=== PATIENT | female | born 1940 | race Caucasian/White ===

== ENCOUNTER 2021-03-29 10:26 | Emergency (ER) | payer MEDICARE, SELFPAY ==
--- NOTE | ~2021-03-29 | XR_ITS ---
EXAMINATION: XR WRIST, LEFT CLINICAL INFORMATION: Left wrist injury COMPARISON: None TECHNIQUE: Four views of the left wrist. FINDINGS: There is no evidence of acute fracture or dislocation of the left wrist. There is some narrowing with spurring and sclerosis seen involving the first carpal metacarpal joint. XR/XR wrist LT min 3V IMPRESSION: No acute fracture or dislocation of the left wrist. Degenerative change first carpal metacarpal joint.
[2021-03-29 10:36] VITALS: BP 141/74; PULSE 92; RESP 18; TEMP 35.9; O2SAT 96; BMI 35.4
--- NOTE | 2021-03-29 11:10 | ED_ITS ---
HPI - Fall General Chief Complaint: Fall Stated Complaint: fell left wrist pain Time Seen by Provider: 03/29/21 11:04 Source: patient and family Mode of arrival: ambulatory Limitations: no limitations History of Present Illness HPI Narrative: 80-year-old female presenting to the ED with complaints of left wrist pain after she had a mechanical fall yesterday of while her daughter was parking the car she was walking towards the sidewalk and she tripped and landed on her left wrist/ knee and since then has been having pain and swelling to the left wrist. She reports she has a small abrasion to her left knee although has no pain to the left knee. She reports she is not up-to-date on her tetanus. She denies any symptoms prior to the fall. She denies any prolonged down time. She only reports left wrist pain/ swelling after the fall and abrasion to the left knee no other symptoms. she reports she only takes a baby aspirin otherwise no other blood thinners. She denies any other injuries complaints or concerns at this time. complaint: fall Onset (ago): day(s) (Yesterday) Fall from: standing Fall witnessed: yes, by family Place fall occurred: street Loss of consciousness: none Prolonged down time: no Symptoms prior to fall: none Context: tripped/slipped ( on the sidewalk) Location of injury - extremities: left: hand ( hand/wrist) Severity: moderate Quality: aching and throbbing Associated symptoms (after fall): denies Related Data Previous Rx's Medication Instructions Recorded acetaminophen 300 mg-codeine 30 mg 1 tab PO Q8H PRN #14 tab 03/29/21 tablet Allergies Allergy/AdvReac Type Severity Reaction Status Date / Time cocoa [COCOA] Allergy Unknown THROAT Verified 03/29/21 10:35 CLOSES Penicillins [PENICILLINS] Allergy Unknown THROAT Verified 03/29/21 10:35 CLOSES Sulfa (Sulfonamide Allergy Unknown THROAT Verified 03/29/21 10:35 Antibiotics) CLOSES [SULFA(SULFONAMIDE ANTIBIOTICS)] Review of Systems Review of Systems: Constitutional : No Weight loss, No Fever, No Chills, No Night Sweats, No Fatigue, No Malaise ENT/Mouth : No Hearing loss, No Ear Pain, No Nasal Congestion, No Sinus Pain, No Hoarseness, No sore throat, No Rhinorrhea, No Swallowing Difficulty Eyes: No Eye Pain, No Swelling, No Redness, No Foreign Body, No Discharge, No Vision Changes Cardiovascular : No Chest Pain, No SOB, No Dyspnea on Exertion, No Orthopnea, No Edema, No Palpitations Respiratory : No Cough, No Sputum, No Wheezing, No Smoke Exposure, No Dyspnea Gastrointestinal : No Nausea, No Vomiting, No Diarrhea, No Constipation, No abdominal Pain, No Hematochezia, No Melena Genitourinary : no irregular bleeding, No Dysuria, No Urinary Frequency, No Hematuria, No Urinary Incontinence, No Urgency, No Flank Pain, No Urinary Flow Changes, No Hesitancy Musculoskeletal : + joint pain/swelling, No Myalgias Skin : No Skin Lesions, No rash Neuro : No Weakness, No Numbness, No Paresthesias, No Loss of Consciousness, No Dizziness, No Headache Psych : No Anxiety/Panic, No Depression, No SI/HI/AH/VH, No Social Issues, Heme/Lymph: No Bruising, No Bleeding,No Lymphadenopathy Endocrine : No Polyuria, No Polydipsia, No Temperature Intolerance Yes all other systems are reviewed and are negative [facility] Past Medical History Attestation statement: The following information was validated with the patient. Social History Social History Alcohol intake: never Smoked in Last 30 Days: No Use of substances other than those prescribed or required for medical reasons: No Advance Directives: No Advance Directives Information Provided: Yes Physical Exam Vital Signs: Vital Signs: Last Vital Signs Temp 96.6 F L 03/29/21 10:36 Pulse 79 03/29/21 12:57 Resp 18 03/29/21 12:57 BP 155/79 H 03/29/21 12:57 Pulse Ox 97 03/29/21 12:57 BMI result Body Mass Index 35.4 vital signs have been reviewed as normal and appeared to be correct. Blood pressure normal Heart rate normal. Respiration rate normal. Temperature normal. Oxygen saturation normal. Appearance: Alert. Oriented X3. No acute distress. Head: Normal external exam. Normocephalic. Atraumatic. Eyes: PERRLA. EOMI. Conjunctiva and sclera normal. Eyelids normal. ENT: Pharynx normal. Uvula midline. Moist mucous membranes. Neck: Normal inspection. Neck supple. FROM. CVS: Normal heart rate and rhythm. Respiratory: No respiratory distress. Painless inspiration. Skin: Skin warm and dry. Normal skin color. Normal skin turgor. No rashes/lesions/lacerations noted. Extremities: Patient with moderate tenderness to palpation and soft tissue swelling and ecchymosis noted to left wrist at the radial and ulnar aspect with limited range of motion for flexion. She reports in extension it feels much better. No obvious ligamentous or tendon injury. She has full range of motion of all fingers. She has full range of motion of the left elbow. She has a sup erficial abrasion to the left knee that is not actively bleeding and no foreign bodies are noted. She does not have any tenderness to the left knee and no obvious ligamentous or tendon injury to the left knee and she has full range of motion to the left knee. Otherwise all other Extremities exhibit normal range of motion and nontender. Neuro: Oriented X 3. No motor deficit. No sensory deficit. Reflexes normal. Normal steady gait. No focal neuro deficits noted. Vascular: + radial pulses Normal cap refill. No cyanosis noted to upper extremity nails Course Course Course Narrative: - 80-year-old female presenting to the ED with complaints of left wrist pain after she had a mechanical fall yesterday of while her daughter was parking the car she was walking towards the sidewalk and she tripped and landed on her left wrist/ knee and since then has been having pain and swelling to the left wrist. She reports she has a small abrasion to her left knee although has no pain to the left knee. She reports she is not up-to-date on her tetanus. will update the patient's tetanus. X-ray of left wrist obtained and revealed chronic changes no acute processes. We will place the patient in a cock-up splint and treat symptomatic and instructed follow up her primary care provider and to return if any new or worsening symptoms and to follow up with Orthopedic if symptoms persist for longer than 1-2 weeks. Patient and family at bedside understand and agree with this plan. MDM - Fall Medical Records Attestation: I reviewed the patient's medical records. Imaging Data left wrist x-ray: Attestation: I personally reviewed and interpreted this imaging study as follows: Radiologist's impression: FINDINGS: There is no evidence of acute fracture or dislocation of the left wrist. There is some narrowing with spurring and sclerosis seen involving the first carpal metacarpal joint.? XR/XR wrist LT min 3V IMPRESSION: No acute fracture or dislocation of the left wrist. ? Degenerative change first carpal metacarpal joint. Discharge Plan Discharge Clinical Impression: Fall, Left wrist sprain, Abrasion of knee, left, Ecchymosis Patient Disposition: Home, Self-Care Instructions: Fall Prevention for Older Adults (ED), Abrasion (ED), Wrist Sprain (ED), Ecchymosis (ED) Prescriptions: New acetaminophen-codeine 300-30 mg tablet 1 tab PO Q8H PRN (Reason: pain) Qty: 14 RF: 0 Referrals: Grace Chou MD [Physician] - 2 weeks ( if symptoms persist for longer than 1-2 weeks make a follow-up appointment with a hand surgeon) Stephanie Rico MD [Primary Care Provider] - 2 days Print Language: Lithuanian
[2021-03-29] MEDS: Diphth,Pertus(ACell),Tet Adult 0.5 ML SYRINGE IM (11:17)
[2021-03-29 12:57] VITALS: BP 155/79; PULSE 79; RESP 18; O2SAT 97
== END 2021-03-29 13:18 | disposition home or self-care (01) ==
PROVIDERS: Emergency Provider Emergency Medicine; PCP Internal Medicine
DX: S63.502A Unspecified sprain of left wrist, initial encounter (principal); S60.212A Contusion of left wrist, initial encounter; S80.212A Abrasion, left knee, initial encounter; W10.1XXA Fall (on)(from) sidewalk curb, initial encounter; Y93.01 Activity, walking, marching and hiking; Y92.481 Parking lot as the place of occurrence of the external cause; Y99.9 Unspecified external cause status
CPT/HCPCS: 73110; 90471; 90715; 99284; 99285

== ENCOUNTER 2024-07-21 05:59 | Outpatient (REF) | payer MEDICARE, SELFPAY ==
[2024-07-21 06:02] LABS: MANUAL DIFF FLAG NO
[2024-07-21 06:39] LABS: Alanine Aminotransferase 45 U/L (0-31); Albumin Level 2.9 g/dL (3.5-5.0); Alkaline Phosphatase 136 U/L (39-117); Anion Gap 11 (12-20); Aspartate Amino Transferase 76 U/L (5-31); Bilirubin Total 0.3 mg/dL (0.0-1.0); Blood Urea Nitrogen 15 mg/dL (9-16); Calcium 8.9 mg/dL (8.4-10.2); Carbon Dioxide 21 mmol/L (22-29); Chloride 111 mmol/L (96-108); Estimated Glomerular Filt Rate 50; Glucose Random 156 mg/dL (60-115); Potassium 4.3 mmol/L (3.3-5.1); Sodium 139 mmol/L (135-145); Total Protein 6.8 g/dL (6.5-8.0)
[2024-07-21 07:13] LABS: Basophils Percent Auto 0.1 % (0-2); Eosinophils Absolute Auto 0.1 X10*3/uL (0.0-0.4); Eosinophils Percent Auto 0.7 % (0-4); Hematocrit 27.6 % (37.0-47.0); Hemoglobin 8.8 g/dl (12.0-16.0); Imm Gran Abs Auto 0.05 X10*3/uL (0.00-0.03); Imm Gran Pct Auto 0.6 % (0.0-0.4); Lymphocytes Absolute Auto 1.8 X10*3/uL (1.2-4.9); Lymphocytes Percent Auto 22.4 % (20-40); Mean Corpuscular HGB Conc 31.9 g/dl (31.0-35.0); Mean Corpuscular Hemoglobin 29.9 pg (27.0-33.0); Mean Corpuscular Volume 93.9 fL (80.0-98.0); Mean Platelet Volume 9.4 fL (9.4-12.3); Monocytes Absolute Auto 0.4 X10*3/uL (0.1-1.2); Monocytes Percent Auto 5.1 % (2-11); Neutrophils Absolute Auto 5.8 x10*3/uL (2.0-8.3); Neutrophils Percent Auto 71.1 % (45-73); Platelet Count 570 X10*3/uL (160-400); Red Blood Count 2.94 X10*6/uL (4.20-5.50); Red Cell Distribution Width 15.7 % (11.0-16.0); White Blood Count 8.2 X10*3/uL (4.8-10.8)
== END 2024-07-21 06:00 | disposition home or self-care (01) ==
LOC: HO.MMNH2L 05:59
PROVIDERS: Visit Provider Family Medicine
DX: I82.402 Acute embolism and thrombosis of unspecified deep veins of left lower extremity (principal); I26.90 Septic pulmonary embolism without acute cor pulmonale
CPT/HCPCS: 36415; 80053; 85025

== ENCOUNTER 2024-07-24 05:45 | Outpatient (REF) | payer MEDICARE, SELFPAY ==
[2024-07-24 05:37] LABS: MANUAL DIFF FLAG NO
[2024-07-24 06:27] LABS: Basophils Percent Auto 0.4 % (0-2); Eosinophils Absolute Auto 0.1 X10*3/uL (0.0-0.4); Eosinophils Percent Auto 0.6 % (0-4); Hematocrit 30.6 % (37.0-47.0); Hemoglobin 9.3 g/dl (12.0-16.0); Imm Gran Abs Auto 0.09 X10*3/uL (0.00-0.03); Imm Gran Pct Auto 0.9 % (0.0-0.4); Lymphocytes Absolute Auto 2.5 X10*3/uL (1.2-4.9); Lymphocytes Percent Auto 25.4 % (20-40); Mean Corpuscular HGB Conc 30.4 g/dl (31.0-35.0); Mean Corpuscular Hemoglobin 29.9 pg (27.0-33.0); Mean Corpuscular Volume 98.4 fL (80.0-98.0); Mean Platelet Volume 9.3 fL (9.4-12.3); Monocytes Absolute Auto 0.4 X10*3/uL (0.1-1.2); Monocytes Percent Auto 4.5 % (2-11); Neutrophils Absolute Auto 6.7 x10*3/uL (2.0-8.3); Neutrophils Percent Auto 68.2 % (45-73); Platelet Count 604 X10*3/uL (160-400); Red Blood Count 3.11 X10*6/uL (4.20-5.50); White Blood Count 9.8 X10*3/uL (4.8-10.8)
[2024-07-24 06:31] LABS: Anion Gap 12 (12-20); Blood Urea Nitrogen 21 mg/dL (9-16); Calcium 8.7 mg/dL (8.4-10.2); Carbon Dioxide 20 mmol/L (22-29); Chloride 113 mmol/L (96-108); Estimated Glomerular Filt Rate 47; Glucose Random 148 mg/dL (60-115); Potassium 4.2 mmol/L (3.3-5.1); Sodium 141 mmol/L (135-145)
== END 2024-07-24 05:46 | disposition home or self-care (01) ==
LOC: HO.MMNH2L 05:45
PROVIDERS: Visit Provider Family Medicine
DX: I26.99 Other pulmonary embolism without acute cor pulmonale (principal); I82.402 Acute embolism and thrombosis of unspecified deep veins of left lower extremity
CPT/HCPCS: 36415; 80048; 85025

== ENCOUNTER 2024-07-31 05:49 | Outpatient (REF) | payer MEDICARE, SELFPAY ==
[2024-07-31 05:41] LABS: MANUAL DIFF FLAG NO
--- OUTSIDE RECORDS SUMMARY | 2024-07-31 06:02 | XMS_ITS | Clinical Summary ---
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 Active nitroglycerin (NITROSTAT) 0.[address] 1 Tab under the tongue as needed for Chest pain. 01/22/20 12 Active predniSONE (DELTASONE) 5 mg tablet Take 1 tablet (5 mg total) by mouth 2 (two) times a day. 02/23/20 24 Active acetaminophen (TYLENOL 8 HOUR) 650 mg 8 hr tablet Take 650 mg by mouth every 8 hours as needed. Active albuterol HFA (PROAIR HFA ; PROVENTIL HFA ; VENTOLIN HFA) 90 mcg/actuation inhaler Inhale 2 Puffs into the lungs every 6 hours as needed for Cough, Wheezing or Shortness of Breath for up to 30 days. 08/05/19 24 Active atorvastatin (LIPITOR) 40 mg tablet Take 1 Tablet by mouth at bedtime. 02/23/20 24 Active cholecalciferol (VITAMIN D-3) 50 mcg (2,000 unit) capsule Take 50 mcg by mouth. 03/26/20 23 Active omeprazole (PriLOSEC) [address] capsule Take 1 capsule (20 mg total) by mouth 1 (one) time each day before breakfast. 90 capsule 06/13/19 25 Active folic acid (FOLVITE) 1 mg tablet Take 1 tablet (1,000 mcg total) by mouth 1 (one) time each day. 05/29/19 25 Active methotrexate 2.5 mg tablet TAKE THREE TABLETS BY MOUTH ONCE A WEEK 05/29/19 25 Active fluorouraciL (EFUDEX) 5 % cream PLEASE SEE ATTACHED FOR DETAILED DIRECTIONS 05/08/19 25 Active apixaban (ELIQUIS) 5 mg tablet Take 2 tablets (10 mg total) by mouth 2 (two) times a day for 8 doses. 07/21/19 25 Active apixaban (ELIQUIS) 5 mg tablet Take 1 tablet (5 mg total) by mouth 2 (two) times a day. 07/25/19 25 Active senna (SENOKOT) 8.6 mg tablet Take 2 tablets (17.2 mg total) by mouth at bedtime. 60 each 11 07/21/19 25 026 Active sertraline (ZOLOFT) 25 mg tablet TAKE 1 TABLET BY MOUTH EVERY DAY 90 tablet 05/11/19 25 025 Discontinu ed(Therapy completed) bisacodyL (DULCOLAX) 10 mg suppository Insert 1 suppository (10 mg total) into the rectum 1 (one) time each day if needed for constipation for up to 10 days. 07/21/19 25 025 ondansetron ODT (ZOFRAN-ODT) 4 mg disintegrating tabletIndications :Nausea Take 1 tablet (4 mg total) by mouth every 8 (eight) hours if needed for vomiting or nausea for up to 7 days. 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 Keating and agree that she is symptomatic from multilevel lumbar stenosis with claudication. We reviewed treatment options including epidural injections, physical therapy and a lumbar decompression with their relative potential benefits. She is currently in PT for osteoarthritis of her knees and it makes the most sense to add on treatment for her back she does not have cauda equina syndrome. Referral slip was provided and she will follow up to let us know her progress and if we need to take further steps. 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 Hypercholesterolemia 11/03/2005 Convulsions 04/20/2005 Overview (05/02/2024): petit mal seizures Severe obesity (BMI 35.0-39.9) with comorbidity 04/20/2005 Encounters Date Type Department Care Team Description 07/16/2024 9:10 AM EDT - 07/20/2024 12:26 PM EDT Hospital Encounter [facility] [address] [place] [phone] Antonio Wynne MD Santoyo-Pach eco, Omar D, MD Pain (Primary Dx); Pulmonary air embolism, initial encounter ([facility]); Venous thromboembolism (VTE); Nausea Discharge Disposition: Retirement Facility from Last 3 Months Immunizations Name Administration Dates Next Due H1N1 Inj Preservative Free 06/21/2009 Influenza trivalent, 0.5mL ( Fluad) 65yo and older 12/29/2023,02/05/2023,12/31/2021,01/24,12/20/2019,02/03/2019,01/10/2018 ,01/07/2017,01/30/2016,02/06/2015,01/24,02/03/2013,01/22/2012, 0,01/25/2009 Influenza trivalent, 0.5mL, preservative free (Fluarix; FluLaval; Fluzone) ages 6mo and older (Afluria) 3 years and older 05/28/2011 Pneumococcal conjugate 13 va lent (Prevnar 13, PCV13) 2mo and older 02/06/2015 Pneumococcal polysaccharide 23 valent (Pneumovax 23) 2yo and older 10/14/2007 Td Tetanus diptheria (Tdvax) 7yo and older 04/13/2016 Tdap Tetanus diptheria acell ular pertussis (Boostrix; Adacel) 7yo and older 03/29/2021,06/21/2006 Surgical History Surgery Date Site/Laterality Comments TUBAL LIGATION PROCEDURE: HISTORICAL TUBAL LIGATION TONSILLECTOMY PROCEDURE: HISTORICAL TONSILLECTOMY COLONOSCOPY 12/30 PROCEDURE: HISTORICAL COLONOSCOPY; COMMENT: [email or web address]; negative screening examination OTHER SURGICAL HISTORY 02/2019 PROCEDURE: MAMMOGRAM CATARACT EXTRACTION 2013 Bilateral PROCEDURE: HISTORICAL CATARACT REMOVAL BREAST BIOPSY 1993 Left PROCEDURE: BX BREAST; PERC NEEDLE CORE W/IMAG GUID COLONOSCOPY 1991 PROCEDURE: HISTORICAL COLONOSCOPY; COMMENT: Negative screening examination COLONOSCOPY 05/07/2016 PROCEDURE: HISTORICAL COLONOSCOPY; COMMENT: [facility]; diverticulosis, otherwise negative screening examination. BREAST SURGERY 1993 Left PROCEDURE: SD UNLISTED PROCEDURE BREAST BELPHAROPTOSIS REPAIR TOTAL KNEE ARTHROPLASTY Left ANKLE SURGERY Right HIP ARTHROPLASTY Right CARPAL TUNNEL RELEASE Bilateral Medical History Medical History Date Comments Obesity, unspecified 04/20/2005 DX:Obesity, unspecified Pure hypercholesterolemia 11/03/2005 DX:Pur e hypercholesterolemia Other convulsions 04/20/2005 DX:Other convu lsions Essential hypertension, benign 04/20/2005 D X:Essential hypertension, benign Unspecified venous (peripher al) insufficiency 09/27/2006 DX:Unspecified venous (perip heral) insufficiency GE reflux 10/14/2007 DX:GE reflux Wrist fracture 06/21/2009 DX:Wrist fractur e Fibula fracture 01/22/2012 DX:Fibula fractu re CKD (chronic kidney disease) stage 3, GFR 30-59 ml/min ([facility]) 08/11/2013 DX:CKD (chronic kidney dise ase) stage 3, GFR 30-59 ml/min ([facility]) Tricuspid regurgitation 10/09/2013 DX:Tricu spid regurgitation; COMMENT: Mild to mod, echo 10/07 Nl EF History of sepsis DX:History of sepsis; COMMENT: Hospitalized [facility] August 2019 History of colitis DX:History of colitis; COMMENT: Hospitalized at [facility] August 2019 Diverticulosis DX:Diverticulosi s Primary osteoarthritis of both knees 07/30/2020 DX:Primary osteoarthritis of both knees Melanoma ([facility]) 03/12/2022 DX:Melanoma ( [facility]) Melanoma ([facility]) 03/12/2022 DX:Melanoma ( [facility]) Monoclonal gammopathy 12/30/2023 DX:Monoclo nal gammopathy Polymyositis Family History Medical History Relation Name Comments No Known Problems Daughter Throat cancer Father 63 No Known Problems Maternal Grandfather No Known Problems Maternal Grandmother Heart failure Mother 89 No Known Problems Other No Known Problems Paternal Grandfather Heart attack Paternal Grandmother 54 No Known Problems Sister Breast cancer Neg Hx Relation Name Status Comments Daughter Father Maternal Grandfather Maternal Grandmother Mother Other Paternal Grandfather Paternal Grandmother Sister Social History Tobacco Use Types Packs/Day Years Used Date Smoking Tobacco: Former Cigarettes 0.8 31 1 06/10/1969 - 04/26/2001 Smokeless Tobacco: Never Alcohol Use Standard Drinks/Week Comments Yes 0 (1 standard drink = 0.6 oz pur e alcohol) socially Interpersonal Safety Answer Date Record ed Physical Abuse 07/16/2024 Verbal Abuse 07/16/2024 Comments Unknown Sex and Gender Information Value Date Recorded Sex Assigned at Female 07/16/2024 9:53 AM EDT Legal Sex Female 9:52 AM EST Gender Identity Female 07/16/2024 9:53 AM EDT Sexual Orientation Straight 07/16/2024 9: 53 AM EDT Obstetrics History Last Filed Vital Signs Vital Sign Reading Time Taken Comments Blood Pressure 108/65 07/20/2024 8:12 AM EDT Pulse 105 07/20/2024 8:12 AM EDT Temperature 36.4 ??C (97.5 ??F) 07/20/2024 8:12 AM ED T Respiratory Rate 16 07/20/2024 8:12 AM EDT Oxygen Saturation 96% 07/20/2024 8:12 AM EDT Inhaled Oxygen Concentration - - Weight 81.1 kg (178 lb 14.4 oz) 025 11:47 AM EDT Height 167.6 cm (5' 6 ) 07/16/2024 9:23 AM EDT Body Mass Index 28.88 07/16/2024 9:23 AM EDT Plan of Treatment Health Maintenance Due Date Last Done Comments Zoster Vaccines (1 of 2) 1961 RSV Immunization Adult Patients (1 - 1-dose 75+ series) 2017 Depression Screening 04/04/2022 Medicare Annual Wellness Visit 04/04/2022 Osteoporosis Screening (Bone Density Screening) 04/04/2022 Social Influencers of Health Screening 04/04/2022 COVID-19 Vaccine ( season) 2023 02/03/2021, 07/01/2020, 06/10/2020 Hypertension/CHF/CAD Annual BMP Blood Test 07/19/2025 07/19/2024, 07/18/2024, 07/17/2024, Additional history exists Falls Risk Assessment 07/20/2025 07/20/2024, 024 Cholesterol Screening (Lipid Panel) 09/15/2027 09/14/2022 DTaP,Tdap,and Td Vaccines (4 - Td or Tdap) 03/29/2031 03/29/2021, 04/13/2016, 06/21/2006 Pneumococcal Vaccine: 50+ Years Completed 02/06/2015, 10/14/2007 Influenza Vaccine Completed 12/29/2023, , 12/31/2021, Additional history exists HIB Vaccines Aged Out No longer eligi ble based on patient's age to complete this topic HPV Vaccines Aged Out No longer eligi ble based on patient's age to complete this topic Hepatitis A Vaccines Aged Out No long er eligible based on patient's age to complete this topic Hepatitis B Vaccines Aged Out No long er eligible based on patient's age to complete this topic IPV Vaccines Aged Out No longer eligi ble based on patient's age to complete this topic MMR Vaccines Aged Out No longer eligi ble based on patient's age to complete this topic Meningococcal ACWY Vaccine Aged Out N o longer eligible based on patient's age to complete this topic Meningococcal B Vacine Aged Out No lo nger eligible based on patient's age to complete this topic RSV Immunization Patients Under 20 months Aged Out No longer eligible based on patient's age to complete this topic Varicella Vaccines Aged Out No longer eligible based on patient's age to complete this topic Procedures Procedure Name Priority Date/Time Associated Diagnosis Comments ECG ANNOTATED 07/21/2024 ECG ANNOTATED 07/21/2024 CBC WITH AUTO DIFFERENTIAL Routine 07/19/2024 6:32 AM EDT BASIC METABOLIC PANEL Routine 07/19/2024 6:32 AM EDT CBC AND DIFFERENTIAL Routine 07/19/2024 6:32 AM EDT CBC WITH AUTO DIFFERENTIAL Routine 07/18/2024 6:03 AM EDT CBC AND DIFFERENTIAL Routine 07/18/2024 6:03 AM EDT BASIC METABOLIC PANEL Routine 07/18/2024 6:03 AM EDT TRANSTHORACIC ECHOCARDIOGRAM (TTE) COMPLETE W/ CONTRAST Routine 07/17/2024 1:00 PM EDT Venous thromboembolism (VTE) HEPARIN ANTI XA Timed 07/17/2024 12:57 PM EDT SEDIMENTATION RATE Add-On 07/17/2024 8: 10 AM EDT HEPARIN ANTI XA Timed 07/17/2024 8:10 AM EDT CBC WITH AUTO DIFFERENTIAL Routine 07/17/2024 8:10 AM EDT BASIC METABOLIC PANEL Routine 07/17/2024 8:10 AM EDT CBC AND DIFFERENTIAL Routine 07/17/2024 8:10 AM EDT HEPARIN ANTI XA Routine 07/17/2024 12:45 AM EDT VAS US DUPLEX LOWER EXT VENOUS BILAT Routine 07/16/2024 6:53 PM EDT Venous thromboembolism (VTE) HEPARIN ANTI XA STAT 07/16/2024 5:35 PM EDT HEPARIN ANTI XA STAT 07/16/2024 12:07 PM EDT ACTIVATED PARTIAL THROMBOPLASTIN TIME STAT 07/16/2024 12:07 PM EDT PROTHROMBIN TIME WITH INR STAT 07/16/2024 12:07 PM EDT TROPONIN I HIGH SENSITIVITY STAT 07/16/2024 11:[address] ANGIO CHEST WO AND/OR W CONTRAST STAT 07/16/2024 11:14 AM EDT Pain ECG 12-LEAD STAT 07/16/2024 11:07 AM EDT XR CHEST 2 VIEWS STAT 07/16/2024 10:37 AM EDT [id number], RSV, FLU A AND B QUALITATIVE RT-PCR, INTERNAL LAB STAT 07/16/2024 10:00 AM EDT CORTISOL STAT Add-on 07/16/2024 9:43 AM EDT CREATINE KINASE Add-On 07/16/2024 9:43 AM EDT TRIIODOTHYRONINE FREE STAT 07/16/2024 9:43 AM EDT FREE THYROXINE WITH REFLEX TO FREE TRIIODOTHYRONINE STAT 07/16/2024 9:43 AM EDT THYROID STIMULATING HORMONE WITH REFLEX TO FREE T4 AND FREE T3 STAT Add-on 07/16/2024 9:43 AM EDT CBC WITH AUTO DIFFERENTIAL STAT 07/16/2024 9:43 AM EDT B-TYPE NATRIURETIC PEPTIDE STAT 07/16/2024 9:43 AM EDT MAGNESIUM STAT 07/16/2024 9:43 AM EDT LIPASE STAT 07/16/2024 9:43 AM EDT COMPREHENSIVE METABOLIC PANEL STAT 07/16/2024 9:43 AM EDT CBC AND DIFFERENTIAL STAT 07/16/2024 9:43 AM EDT TROPONIN I HIGH SENSITIVITY STAT 07/16/2024 9:43 AM EDT ECG 12-LEAD STAT 07/16/2024 9:17 AM EDT FALLS RISK ASSESSMENT Routine 12/22/2023 LIPID PANEL Routine 09/14/2022 from Last 3 Months or Most Recently Relevant to Health Maintenance Results * ECG-Annotated (07/21/2024) Only the most recent of2 resultswithin the time period is included. us Provider Onbase MD ECG ORDERABLES Final Result * (ABNORMAL) CBC auto differential (07/19/2024 6:32 AM EDT) Only the most recent of4 resultswithin the time period is included. [facility] WBC 9.2 4.8 - 10.8 K/mcL LAB HEMETOLOGY METHOD 07/19/2024 7:13 AM [facility] RBC 3.00(L) 3.80 - 4.80 M/mcL LAB HEMETOLOGY METHOD 07/19/2024 7:13 AM [facility] Hemoglobin 8.9(L) 11.5 - 16.0 g/dL LAB HEMETOLOGY METHOD 07/19/2024 7:13 AM [facility] Hematocrit 29.1(L) 35.0 - 47.0 % LAB HEMETOLOGY METHOD 07/19/2024 7:13 AM [facility] MCV 96.7 79.0 - 98.0 FL LAB HEMETOLOGY METHOD 07/19/2024 7:13 AM [facility] MCH 29.6 27.0 - 32.0 pcg LAB HEMETOLOGY METHOD 07/19/2024 7:13 AM [facility] MCHC 30.6(L) 32.0 - 37.0 g/dL LAB HEMETOLOGY METHOD 07/19/2024 7:13 AM [facility] RDW 15.6(H) 11.0 - 15.0 % LAB HEMETOLOGY METHOD 07/19/2024 7:13 AM [facility] Platelets 584(H) 130 - 400 K/mcL LAB HEMETOLOGY METHOD 07/19/2024 7:13 AM [facility] MPV 9.3 7.0 - 11.0 FL LAB HEMETOLOGY METHOD 07/19/2024 7:13 AM [facility] NRBC 0.0 <1.0 % LAB HEMETOLOGY METHOD 07/19/2024 7:13 AM [facility] NRBC Absolute 0.00 <0.10 K/[facility] LAB HEMETOLOGY METHOD 07/19/2024 7:13 AM [facility] Neutrophils Relative 60.7 % LAB HEMETOLOGY METHOD 07/19/2024 7:13 AM [facility] Lymphocytes Relative 27.2 % LAB HEMETOLOGY METHOD 07/19/2024 7:13 AM [facility] Monocytes Relative 8.6 % LAB HEMETOLOGY METHOD 07/19/2024 7:13 AM [facility] Eosinophils Relative 2.3 % LAB HEMETOLOGY METHOD 07/19/2024 7:13 AM [facility] Basophils Relative 0.4 % LAB HEMETOLOGY METHOD 07/19/2024 7:13 AM [facility] Immature Granulocytes Relative 0.8 % LAB HEMETOLOGY METHOD 07/19/2024 7:13 AM [facility] Neutrophils Absolute 5.57 1.50 - 7.00 K/mcL LAB HEMETOLOGY METHOD 07/19/2024 7:13 AM [facility] Lymphocytes Absolute 2.50 1.00 - 5.00 K/mcL LAB HEMETOLOGY METHOD 07/19/2024 7:13 AM [facility] Monocytes Absolute 0.79 0.20 - 1.00 K/mcL LAB HEMETOLOGY METHOD 07/19/2024 7:13 AM [facility] Eosinophils Absolute 0.21 0.00 - 0.50 K/mcL LAB HEMETOLOGY METHOD 07/19/2024 7:13 AM [facility] Basophils Absolute 0.04 0.00 - 0.20 K/mcL LAB HEMETOLOGY METHOD 07/19/2024 7:13 AM [facility] Immature Granulocytes Absolute 0.07(H) 0.00 - 0.03 K/mcL LAB HEMETOLOGY METHOD 07/19/2024 7:13 AM [facility] Blood Venous blood specimen / Unknown Venipuncture / Unknown 07/19/2024 6:32 AM EDT 07/19/2024 6:41 AM EDT us Leo Neumann MD LAB BLOOD ORDERABLES F inal Result [facility] [address] [place] [address], [place] [phone] * (ABNORMAL) Basic metabolic panel (07/19/2024 6:32 AM EDT) Only the most recent of3 resultswithin the time period is included. Sodium 135 133 - 145 mmol/L LAB CHEMISTRY METHOD 07/19/2024 7:26 AM [facility] Potassium 3.9 3.5 - 5.5 mmol/L LAB CHEMISTRY METHOD 07/19/2024 7:26 AM [facility] Chloride 107 96 - 110 mmol/L LAB CHEMISTRY METHOD 07/19/2024 7:26 AM [facility] CO2 22 21 - 32 mmol/L LAB CHEMISTRY METHOD 07/19/2024 7:26 AM [facility] Anion Gap 6 3 - 11 LAB CHEMISTRY METHOD 07/19/2024 7:26 AM [facility] Glucose 127(H) 70 - 100 mg/dL LAB CHEMISTRY METHOD 07/19/2024 7:26 AM [facility] BUN 13 5 - 25 mg/dL LAB CHEMISTRY METHOD 07/19/2024 7:26 AM [facility] Creatinine 1.10 0.50 - 1.10 mg/dL LAB CHEMISTRY METHOD 07/19/2024 7:26 AM [facility] eGFR 50(L) >=60 mL/min/1. 73m2 LAB CHEMISTRY METHOD 07/19/2024 7:26 AM [facility] Comment:Calculation based on the??Chronic Kidney Disease Epidemiology Collaboration (CKD-EPI) equation refit??without adjustment for race. BUN/Creatinine Ratio 11.8 LAB CHEMISTRY METHOD 07/19/2024 7:26 AM EDT [facility] Calcium 9.0 8.5 - 10.5 mg/dL LAB CHEMISTRY METHOD 07/19/2024 7:26 AM EDT [facility] Blood Venous blood specimen / Unknown Venipuncture / Unknown 07/19/2024 6:32 AM EDT 07/19/2024 6:41 AM EDT us Leo Neumann MD LAB BLOOD ORDERABLES F inal Result [facility] [address] [place] [address], [place] [phone] * TRANSTHORACIC ECHOCARDIOGRAM (TTE) COMPLETE W/ CONTRAST (07/17/2024 1:00 PM EDT) Left Atrium Minor Montezuma 5.0 cm CV PACS Left Atrium Major Montezuma 5.5 cm CV PACS LA Area Sys (A2C) 17 cm2 CV PACS LA Area Sys (A4C) 18 cm2 CV PACS LA Volume (BP) 48 mL CV PACS RA Area 11.2 cm2 CV PACS RA 2D Volume 22 mL CV PACS AV Mean Gradient 5 mmHg CV PACS Ao VTI 25.9 cm CV PACS AV Peak Reynaldo 1.5 m/s CV PACS AV Peak Gradient 9 mmHg CV PACS AV Area Continuity Equation 2.9 cm2 CV PACS AV Area Peak Velocity 2.9 cm2 CV PACS Aortic Sinus Valsalva 3.0 cm CV PACS Ascending Aorta 2.9 cm CV PACS IVC Proximal 1.6 cm CV PACS LVOT Diameter 2.0 cm CV PACS LVOT Mean Reynaldo 1.0 m/s CV PACS LVOT Mean Grad 4 mmHg CV PACS LVOT Peak VTI 23.7 cm CV PACS LVOT Peak Reynaldo 1.4 m/s CV PACS LVOT Peak Gradient 8 mmHg CV PACS MV E' Tissue Velocity Lateral 9 cm/s CV PACS MV E' Tissue Velocity Septal 6 cm/s CV PACS LVOT Area 3.1 cm2 CV PACS LVOT Stroke Volume 74 mL CV PACS MV Deceleration Callahan 5.0 m/s2 CV PACS E Wave Deceleration Time 174 119 - 242 ms CV PACS MV PHT 51 ms CV PACS MV Peak A Reynaldo 1.40 m/s CV PACS MV Peak E Reynaldo 0.87 m/s CV PACS MV Area PHT 4.3 cm2 CV PACS PV Acceleration Time 120 ms CV PACS PV Peak Velocity 1.0 m/s CV PACS PV Peak Gradient 4 mmHg CV PACS RV Diastolic Basal Dimension 3.1 2.5 - 4.1 cm CV PACS RV S' 22 cm/s CV PACS TAPSE 26 mm CV PACS E/E' Ratio Septal 15 CV PACS E/E' Ratio Averaged 12 CV PACS LVOT Stroke Index 39 mL/m2 CV PACS LVOT:AV VTI Index 0.92 CV PACS Ascending Aorta Index 1.52 cm/m2 CV PACS LVOT flow 314 mL/s CV PACS RA 2D Volume Index 12 mL/m2 CV PACS ANNMARIE Index (VTI) 1.50 cm2/m2 CV PACS ANNMARIE Index (Pk Reynaldo) 1.52 cm2/m2 CV PACS AV Velocity Ratio 0.93 CV PACS E/A Ratio 0.6 CV PACS E/E' Ratio Lateral 10 CV PACS LA Volume Index (BP) 25 mL/m2 CV PACS BSA 1.84 m2 CV PACS Est. RA Pressure 3 mmHg CV PACS Anatomical Region Laterality Modality Ultrasound Narrative 07/17/2024 2:29 PM EDT ?Poor image quality. ??LV function is clearly normal. ??RV function is clearly normal. ??RV size looks normal. ?The atria are grossly normal. ?No significant valvular abnormality. ?The IVC looks normal. ?No prior echo for comparison. Left Ventricle Left ventricle was not well visualized. Wall thickness was not well visualized. Systolic function is normal with an ejection fraction of 65-70%. There are no regional LV wall motion abnormalities. There is no diastolic dysfunction. Right Ventricle Right ventricle cavity appears normal. Systolic function is normal. Left Atrium Left atrium volume index is normal. Right Atrium Right atrium cavity is normal. IVC/SVC RA pressures is estimated to be 3 mmHg (IVC diameter <21 mm and decreases >50% during inspiration). Mitral Valve The leaflets are mildly thickened. There is mild annular calcification. There is trace regurgitation. There is no evidence of mitral valve stenosis. Tricuspid Valve The leaflets exhibit normal excursion. There is trace regurgitation. There is no evidence of tricuspid valve stenosis. Cannot assess RVSP. Aortic Valve The aortic valve is trileaflet. The leaflets are mildly thickened. There is no regurgitation or stenosis. Pulmonic Valve The pulmonic valve was not well visualized. There is trace pulmonic valve regurgitation. There is no evidence of pulmonic valve stenosis. Ascending Aorta The aorta appears normal in size. Pericardium Pericardium appears normal. Study Details Overall the study quality was technically difficult. Definity contrast was given to enhance imaging. Study was difficult due to: poor endocardial visualization, procedure performed with the patient in a supine position and lung artifact. us Leo Neumann MD CV ECHO PROCEDURES Fin al Result * Anti-Xa - Every 6 Hours (07/17/2024 12:57 PM EDT) Only the most recent of5 resultswithin the time period is included. Heparin Anti-Xa 0.60 0.30 - 0.70 I Unit/mL LAB COAGULATION METHOD 07/17/2024 1:24 PM EDT [facility] Blood Venous blood specimen / Unknown Venipuncture / Unknown 07/17/2024 12:57 PM EDT 07/17/2024 1:01 PM EDT Narrative [facility] - 07/17/2024 1:24 PM EDT Therapeutic range listed is for Unfractionated Heparin. LMW Heparin therapeutic range: 0.50-1.20 IU/mL us Leo Neumann MD LAB BLOOD ORDERABLES F inal Result [facility] [address] [place] [address], [place] [phone] * (ABNORMAL) Sedimentation rate (07/17/2024 8:10 AM EDT) Sed Rate 129(H) 0 - 30 mm/hr LAB HEMETOLOGY METHOD 07/17/2024 9:06 AM EDT [facility] Blood Venous blood specimen / Unknown Venipuncture / Unknown 07/17/2024 8:10 AM EDT 07/17/2024 8:25 AM EDT us Leo Neumann MD LAB BLOOD ORDERABLES F inal Result [facility] [address] [place] [address], [place] [phone] * Vascular US duplex lower extremity venous bilateral (07/16/2024 6:53 PM EDT) Anatomical Region Laterality Modality Vascular, Abdomen Ultrasound 07/16/2024 7:11 PM EDT Addenda Addendum by Danisha Nicolas MD on 07/16/2024 7:17 PM EDT ADDENDUM: This report was discussed with Keily Fofana RN on Jul 16, 2024 19:17:00 EDT. This document has been electronically signed by: Melanie Fraga on 07/16/2024 19:17:48 Impressions 07/16/2024 7:11 PM EDT Occlusive thrombus in the left common femoral vein and superficial femoral vein. Negative for right lower extremity deep vein thrombosis. This document has been electronically signed by: Danisha Nicolas MD on 07/16/2024 19:11:37 Narrative 07/16/2024 7:11 PM EDT INDICATION: DVT Hx Venous duplex ultrasound bilateral lower extremity Comparison: None Findings: Right lower extremity: The visualized deep veins are fully compressible with normal Doppler color flow and spectral tracings. No popliteal cyst. Left lower extremity: Occlusive thrombus in the left common femoral vein and superficial femoral vein. The other visualized deep veins are fully compressible with normal Doppler color flow and spectral tracings. No popliteal cyst. Procedure Note Danisha Nicolas MD - 07/16/2024 INDICATION: DVT Hx Venous duplex ultrasound bilateral lower extremity Comparison: None Findings: Right lower extremity: The visualized deep veins are fully compressible with normal Dopplercolor flow and spectral tracings. No popliteal cyst. Left lower extremity: Occlusive thrombus in the left common femoral vein and superficialfemoral vein. The other visualized deep veins are fully compressible with normalDoppler color flow and spectral tracings. No popliteal cyst. IMPRESSION: Occlusive thrombus in the left common femoral vein and superficialfemoral vein. Negative for right lower extremity deep vein thrombosis. This document has been electronically signed by: Danisha Nicolas MD on 07/16/2024 19:11:37 us Nadia JARAMILLO CV VASCULAR PROCEDURES Edited R esult - Final * Activated Partial Thromboplastin Time - STAT (07/16/2024 12:07 PM EDT) [facility] aPTT 26.2 24.1 - 39.3 sec LAB COAGULATION METHOD 07/16/2024 12:52 PM EDT [facility] Blood Venous blood specimen / Unknown Venipuncture / Unknown 07/16/2024 12:07 PM EDT 07/16/2024 12:42 PM EDT Mgehan JARAMILLO LAB BLOOD ORDERABLES F inal Result [facility] [address] [place] [address], [place] [phone] * Prothrombin Time with INR - STAT (07/16/2024 12:07 PM EDT) [facility] Protime 13.6 10.6 - 13.9 sec LAB COAGULATION METHOD 07/16/2024 12:52 PM EDT [facility] INR 1.1 LAB COAGULATION METHOD 07/16/2024 12:52 PM EDT [facility] Blood Venous blood specimen / Unknown Venipuncture / Unknown 07/16/2024 12:07 PM EDT 07/16/2024 12:42 PM EDT Meghan JARAMILLO LAB BLOOD ORDERABLES F inal Result Performing Organization Address [facility] Co de Phone Number [facility] [address] [place] [address], [place] [phone] * Troponin I high sensitivity (07/16/2024 11:19 AM EDT) Only the most recent of2 resultswithin the time period is included. [facility] High Sensitivity Troponin I 4 <=54 ng/L LAB CHEMISTRY METHOD 07/16/2024 12:19 PM EDT [facility] Blood Venous blood specimen / Unknown Venipuncture / Unknown 07/16/2024 11:19 AM EDT 07/16/2024 11:46 AM EDT Narrative [facility] - 07/16/2024 12:19 PM EDT High levels of biotin in samples may falsely decrease hsTroponin values. ??Use caution when interpreting hsTroponin results in patients taking biotin who exhibit renal impairment (eGFR <60) or in patients taking more than 20 mg/day of biotin. Antonio Wynne MD LAB BLOOD ORDERABLES Debi l Result Performing Organization Address [facility]/ZIP Co de Phone Number [facility] [address] [place] [address], [place] [phone] * CT Angio Chest wo and/or w Contrast (07/16/2024 11:14 AM EDT) Anatomical Region Laterality Modality Body Computed Tomogra phy 07/16/2024 11:2 4 AM EDT Impressions 07/16/2024 11:34 AM EDT Impression: 1. Pulmonary thromboembolism involving the distal right pulmonary artery with extension into the right upper and middle lobe arteries, as described, with a small right middle lobe pulmonary infarct accounting for the finding noted on the preceding chest radiograph. 2. No evidence of right heart strain. The pertinent findings were conveyed to the referring provider by secure message ([email or web address]) at the time of interpretation on 07/16/24. Telerad ELLA ([id number]) -------- FINAL REPORT -------- Dictated By: Jessica Ashford Dictated Date: 07/16/2024 11:24 ET Assigned Physician: Jessica Ashford Reviewed and Electronically Signed By: Jessica Ashford Signed Date: 07/16/2024 11:34 ET Workstation ID: [id number] Transcribed By: Self Edit Transcribed Date: 07/16/2024 11:24 ET Narrative 07/16/2024 11:34 AM EDT History: Chest pain. Comparison: No comparison imaging at this institution. TECHNIQUE: Helical volumetric imaging of the thorax was performed in the axial plane during the rapid, uneventful intravenous administration of 90 mL Isovue-370, using the CT angiography protocol tailored for evaluation of the pulmonary arteries. Coronal and sagittal images were reformatted from the original data set and maximum intensity pixel images were reviewed, in multiple planes, on an independent CT workstation. DLP: 500.78 mGy/cm Zigabid VCT Iterative reconstruction technique Findings: The pulmonary arterial tree is well-opacified to the subsegmental level bilaterally. A large filling defect is seen within the distal right pulmonary artery and extends into the proximal right upper lobe artery and into the right middle lobe medial and lateral segmental arteries, consistent with pulmonary thromboembolism. The right middle lobe lateral segmental artery and multiple subsegmental arteries are completely occluded. The heart is normal in size. No findings of right heart strain are identified. The thoracic aorta is normal in caliber, with moderate atherosclerotic change. Coronary artery calcification is also seen. No pleural or pericardial effusions are identified. No thoracic lymphadenopathy is seen. The trachea and central bronchial tree are patent. The nodular opacity identified in the right mid lung on the preceding chest radiograph corresponds to a triangular, pleural-based 2 cm air space opacity in the lateral segment of the right middle lobe, consistent with a pulmonary infarct in this setting. There is mild dependent density at the lung bases, consistent with atelectasis. A small portion of the upper abdomen included on the lowest images through the thorax is without significant abnormality. 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 Procedure Note Jessica Ashford MD - 07/16/2024 History: Chest pain. Comparison: No comparison imaging at this institution. TECHNIQUE: Helical volumetric imaging of the thorax was performed in theaxial plane during the rapid, uneventful intravenous administration of 90mL Isovue-370, using the CT angiography protocol tailored for evaluationof the pulmonary arteries. Coronal and sagittal images were reformattedfrom the original data set and maximum intensity pixel images werereviewed, in multiple planes, on an independent CT workstation. DLP: 500.78 mGy/cm EKK [employer] Iterative reconstruction technique Findings: The pulmonary arterial tree is well-opacified to the subsegmental levelbilaterally. A large filling defect is seen within the distal right pulmonary arteryand extends into the proximal right upper lobe artery and into the rightmiddle lobe medial and lateral segmental arteries, consistent withpulmonary thromboembolism. The right middle lobe lateral segmental arteryand multiple subsegmental arteries are completely occluded. The heart is normal in size. No findings of right heart strain areidentified. The thoracic aorta is normal in caliber, with moderateatherosclerotic change. Coronary artery calcification is also seen. No pleural or pericardial effusions are identified. No thoraciclymphadenopathy is seen. The trachea and central bronchial tree are patent. The nodular opacityidentified in the right mid lung on the preceding chest radiographcorresponds to a triangular, pleural-based 2 cm air space opacity in thelateral segment of the right middle lobe, consistent with a pulmonaryinfarct in this setting. There is mild dependent density at the lungbases, consistent with atelectasis. A small portion of the upper abdomen included on the lowest images throughthe thorax is without significant abnormality. 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 IMPRESSION: Impression: 1. Pulmonary thromboembolism involving the distal right pulmonary arterywith extension into the right upper and middle lobe arteries, asdescribed, with a small right middle lobe pulmonary infarct accounting forthe finding noted on the preceding chest radiograph. 2. No evidence of right heart strain. The pertinent findings were conveyed to the referring provider by securemessage ([email or web address]) at the time of interpretation on 07/16/24. Teletabitha JARAMILLO ([id number]) -------- FINAL REPORT -------- Dictated By: Jessica Ashford Dictated Date: 07/16/2024 11:24 ET Assigned Physician: Jessica Ashford Reviewed and Electronically Signed By: Jessica Ashford Signed Date: 07/16/2024 11:34 ET Workstation ID: [id number] Transcribed By: Self Edit Transcribed Date: 07/16/2024 11:24 ET us Meghan JARAMILLO IMG CT PROCEDURES Debi l Result * ECG 12 lead (07/16/2024 11:07 AM EDT) Only the most recent of2 resultswithin the time period is included. Ventricular Rate ECG 113 BPM GEMUSE Atrial Rate 113 BPM GEMUSE P-R Interval 162 ms GEMUSE QRS Duration 80 ms GEMUSE Q-T Interval 338 ms GEMUSE QTc 463 ms GEMUSE P Wave [place] 49 degrees GEMUSE R [place] 12 degrees GEMUSE T [place] 39 degrees GEMUSE ECG Interpretation Sinus tachycardia with occasional Premature ventricular complexes Otherwise normal ECG When compared with ECG of 16-JUL-2024 09:17, (unconfirmed) Premature ventricular complexes are now Present Confirmed by CONNER CHEUNG ([id number]) on 07/16/2024 5:02:23 PM GEMUSE 07/16/2024 11:0 7 AM EDT 07/16/2024 5:02 PM EDT us Antonio Wynne MD ECG ORDERABLES Final Res ult GEMUSE * XR Chest 2 Views (07/16/2024 10:37 AM EDT) Anatomical Region Laterality Modality Body Radiographic Mechelle ging 07/16/2024 10:3 8 AM EDT Impressions 07/16/2024 10:40 AM EDT Impression: Faint nodular opacity in the right mid lung, new from 2005. Thoracic CT may be of benefit for further characterization if clinically appropriate. Telerad ELLA ([id number]) -------- FINAL REPORT -------- Dictated By: Jessica Ashford Dictated Date: 07/16/2024 10:38 ET Assigned Physician: Jessica Ashford Reviewed and Electronically Signed By: Jessica Ashford Signed Date: 07/16/2024 10:40 ET Workstation ID: [id number] Transcribed By: Self Edit Transcribed Date: 07/16/2024 10:38 ET Narrative 07/16/2024 10:40 AM EDT Study: Chest pain. Comparison: 10/08/05 Findings: PA and lateral views. The cardiac silhouette remains normal in size. The lukasz are not enlarged and the pulmonary vascularity is within normal limits. A 2 cm faint nodular opacity is seen in the periphery of the right mid lung, well seen only on the frontal views, new from 2005. The lungs are otherwise clear. The costophrenic angles are sharp. The regional skeleton is intact. Procedure Note Jessica Ashford MD - 07/16/2024 Study: Chest pain. Comparison: 10/08/05 Findings: PA and lateral views. The cardiac silhouette remains normal in size. Thehila are not enlarged and the pulmonary vascularity is within normallimits. A 2 cm faint nodular opacity is seen in the periphery of the right midlung, well seen only on the frontal views, new from 2005. The lungs areotherwise clear. The costophrenic angles are sharp. The regional skeleton is intact. IMPRESSION: Impression: Faint nodular opacity in the right mid lung, new from 2005. Thoracic CTmay be of benefit for further characterization if clinicallyappropriate. Telerad ELLA ([id number]) -------- FINAL REPORT -------- Dictated By: Jessica Ashford Dictated Date: 07/16/2024 10:38 ET Assigned Physician: Jessica Ashford Reviewed and Electronically Signed By: Jessica Ashford Signed Date: 07/16/2024 10:40 ET Workstation ID: [id number] Transcribed By: Self Edit Transcribed Date: 07/16/2024 10:38 ET Antonio Wynne MD IMG XR PROCEDURES Final R esult * [id number], RSV, Influenza A and B qualitative RT-PCR (07/16/2024 10:00 AM EDT) Influenza A PCR Not Detected Not Detected LAB MICROBIOLOGY METHOD 07/16/2024 11:16 AM EDT [facility] Influenza B PCR Not Detected Not Detected LAB MICROBIOLOGY METHOD 07/16/2024 11:16 AM EDT [facility] RSV PCR Not Detected Not Detected LAB MICROBIOLOGY METHOD 07/16/2024 11:16 AM EDT [facility] SARS COV-2 Not Detected Not Detected LAB MICROBIOLOGY METHOD 07/16/2024 11:16 AM EDT [facility] Swab Both anterior nares / Unknown Non-blood Collection / Unknown 07/16/2024 10:00 AM EDT 07/16/2024 10:09 AM EDT Narrative [facility] - 07/16/2024 11:16 AM EDT Disclaimer: ??Testing was performed using the [employer] GeneXpert Xpress SARS-CoV-2 _Flu_RSV PLUS PCR assay. ??The manner in which this information is used to guide patient care is the responsibility of the healthcare provider. ??Results should be correlated with the clinical history, epidemiological data, and other data available to the clinician evaluating the patient. ??Negative results do not preclude infection. ??This test has been authorized by the FDA under an Emergency Use Authorization (EUA). ??This test is only authorized for the duration of time the declaration that circumstances exist justifying the authorization of the emergency use of in vitro diagnostic tests for detection of SARS-CoV-2 virus and/or diagnosis of COVID-19 infection under section 564 (b) (1) of the Act, 21 U.S.C 360bbb-3 (b) (1), unless the authorization is terminated or revoked sooner. ?? Reference Range: Not Detected Fact sheet for Healthcare providers can be found at https://www.fda.gov/media/240950/download. ?? Fact sheet for Healthcare patients can be found at https://www.fda.gov/media/183471/download. us Meghan JARAMILLO LAB MICROBIOLOGY - GEN ERAL ORDERABLES Final Result Performing Organization Address [facility] Co de Phone Number [facility] [address] [place] [address], [place] [phone] * (ABNORMAL) Thyroid stimulating hormone with reflex to free t4 and free t3 (TSH Reflex) (07/16/2024 9:43 AM EDT) TSH 5.73(H) 0.40 - 4.00 mcIU/mL LAB CHEMISTRY METHOD 07/16/2024 11:43 AM EDT [facility] Blood Venous blood specimen / Unknown Venipuncture / Unknown 07/16/2024 9:43 AM EDT 07/16/2024 10:10 AM EDT Meghan JARAMILLO LAB BLOOD ORDERABLES F inal Result Performing Organization Address [facility] de Phone Number [facility] [address] [place] [address], [place] [phone] * Free thyroxine with reflex to free triiodothyronine (07/16/2024 9:43 AM EDT) Free T4 1.06 0.70 - 1.80 ng/dL LAB CHEMISTRY METHOD 07/16/2024 12:53 PM EDT [facility] Blood Venous blood specimen / Unknown Venipuncture / Unknown 07/16/2024 9:43 AM EDT 07/16/2024 10:10 AM EDT us Meghan JARAMILLO LAB BLOOD ORDERABLES F inal Result Performing Organization Address City/[facility]/ZIP Co de Phone Number [facility] [address] [place] [address], * (ABNORMAL) Triiodothyronine free (07/16/2024 9:43 AM EDT) T3, Free 192(L) 230 - 420 pcg/dL LAB CHEMISTRY METHOD 07/16/2024 2:10 PM EDT [facility] Blood Venous blood specimen / Unknown Venipuncture / Unknown 07/16/2024 9:43 AM EDT 07/16/2024 10:10 AM EDT Meghan JARAMILLO LAB BLOOD ORDERABLES F inal Result Performing Organization Address City/[facility]/ZIP Co de Phone Number [facility] [address] [place] [address], * B-type natriuretic peptide (07/16/2024 9:43 AM EDT) Pathologist [facility] BNP 22 <=100 pcg/mL LAB CHEMISTRY METHOD 07/16/2024 10:49 AM EDT [facility] Blood Venous blood specimen / Unknown Venipuncture / Unknown 07/16/2024 9:43 AM EDT 07/16/2024 10:10 AM EDT Antonio Wynne MD LAB BLOOD ORDERABLES Debi l Result [facility] [address] [place] [address], * Magnesium (07/16/2024 9:43 AM EDT) Magnesium 2.1 1.9 - 2.6 mg/dL LAB CHEMISTRY METHOD 07/16/2024 10:37 AM EDT [facility] Blood Venous blood specimen / Unknown Venipuncture / Unknown 07/16/2024 9:43 AM EDT 07/16/2024 10:10 AM EDT Antonio Wynne MD LAB BLOOD ORDERABLES Debi l Result Performing Organization Address [facility]/ZIP Co de Phone Number [facility] [address] [place] [address], [place] [phone] * Lipase (07/16/2024 9:43 AM EDT) Pathologist [facility] Lipase 25 13 - 75 unit/L LAB CHEMISTRY METHOD 07/16/2024 10:37 AM EDT [facility] Blood Venous blood specimen / Unknown Venipuncture / Unknown 07/16/2024 9:43 AM EDT 07/16/2024 10:10 AM EDT Antonio Wynne MD LAB BLOOD ORDERABLES Debi l Result Performing Organization Address [facility] Co de Phone Number [facility] [address] [place] [address], [place] [phone] * Creatine kinase (07/16/2024 9:43 AM EDT) [facility] Total CK 26 22 - 269 unit/L LAB CHEMISTRY METHOD 07/16/2024 5:43 PM EDT [facility] Blood Venous blood specimen / Unknown Venipuncture / Unknown 07/16/2024 9:43 AM EDT 07/16/2024 10:10 AM EDT Nadia JARAMILLO LAB BLOOD ORDERABLES Final Resu lt Performing Organization Address [facility]/ZIP Co de Phone Number [facility] [address] [place] [address], [place] [phone] * Cortisol (07/16/2024 9:43 AM EDT) Cortisol 26.4 mcg/dL LAB CHEMISTRY METHOD 07/16/2024 5:58 PM EDT [facility] Blood Venous blood specimen / Unknown Venipuncture / Unknown 07/16/2024 9:43 AM EDT 07/16/2024 10:10 AM EDT Narrative [facility] - 07/16/2024 5:58 PM EDT CORTISOL REFERENCE RANGE ?? 8 AM SPEC: ??5.0-23.0 mcg/dL ?? 4 PM SPEC: ??3.0-16.0 mcg/dL ?? 8 PM SPEC: ??<5.0 mcg/dL us Nadia JARAMILLO LAB BLOOD ORDERABLES Final Resu lt [facility] [address] [place] [address], * (ABNORMAL) Comprehensive metabolic panel (07/16/2024 9:43 AM EDT) Sodium 134 133 - 145 mmol/L LAB CHEMISTRY METHOD 07/16/2024 10:37 AM [facility] Potassium 4.1 3.5 - 5.5 mmol/L LAB CHEMISTRY METHOD 07/16/2024 10:37 AM [facility] Chloride 105 96 - 110 mmol/L LAB CHEMISTRY METHOD 07/16/2024 10:37 AM [facility] CO2 18(L) 21 - 32 mmol/L LAB CHEMISTRY METHOD 07/16/2024 10:37 AM [facility] Anion Gap 11 3 - 11 LAB CHEMISTRY METHOD 07/16/2024 10:37 AM [facility] Glucose 99 70 - 100 mg/dL LAB CHEMISTRY METHOD 07/16/2024 10:37 AM [facility] BUN 17 5 - 25 mg/dL LAB CHEMISTRY METHOD 07/16/2024 10:37 AM [facility] Creatinine 1.25(H) 0.50 - 1.10 mg/dL LAB CHEMISTRY METHOD 07/16/2024 10:37 AM [facility] eGFR 43(L) >=60 mL/min/1. 73m2 LAB CHEMISTRY METHOD 07/16/2024 10:37 AM [facility] Comment:Calculation based on the??Chronic Kidney Disease Epidemiology Collaboration (CKD-EPI) equation refit??without adjustment for race. BUN/Creatinine Ratio 13.6 LAB CHEMISTRY METHOD 07/16/2024 10:37 AM [facility] Calcium 9.3 8.5 - 10.5 mg/dL LAB CHEMISTRY METHOD 07/16/2024 10:37 AM [facility] AST (SGOT) 102(H) 10 - 42 unit/L LAB CHEMISTRY METHOD 07/16/2024 10:37 AM [facility] ALT (SGPT) 52 10 - 60 unit/L LAB CHEMISTRY METHOD 07/16/2024 10:37 AM [facility] Alkaline Phosphatase 176(H) 42 - 121 unit/L LAB CHEMISTRY METHOD 07/16/2024 10:37 AM [facility] Total Protein 7.4 6.0 - 8.0 g/dL LAB CHEMISTRY METHOD 07/16/2024 10:37 AM [facility] Albumin 2.4(L) 3.2 - 5.0 g/dL LAB CHEMISTRY METHOD 07/16/2024 10:37 AM [facility] Total Bilirubin 0.9 0.0 - 1.4 mg/dL LAB CHEMISTRY METHOD 07/16/2024 10:37 AM [facility] Blood Venous blood specimen / Unknown Venipuncture / Unknown 07/16/2024 9:43 AM EDT 07/16/2024 10:10 AM EDT us Antonio Wynne MD LAB BLOOD ORDERABLES Debi l Result [facility] [address] [place] [address], [place] [phone] * Hm Falls Risk Assessment (12/22/2023) Falls Risk Assessment abstracted us Historical Provider HEALTH MAINTENANCE Final Result * (ABNORMAL) Lipid panel (09/14/2022) LDL/HDL Ratio 4 0 - 4 Triglycerides 169(A) 0 - 150 mg/dL Cholesterol 188 0 - 200 mg/dL HDL 51 >=40 mg/dL LDL Cholesterol 104(A) 0 - 100 mg/dL Blood Venous blood specimen / Unknown Historical Provider LAB BLOOD ORDERABLES Debi l Result from Last 3 Months or Most Recently Relevant to Health Maintenance Insurance MEDICARE Advance Directives Documents on File Type Date Recorded Patient Patternmaker Pressure Cast Expl anation Advance Directives and Living Will 07/17/2024 1:06 PM Dulce Maria Keating Health Care Proxy Healthcare Agents on File Name Relationship Healthcare Agent [facility] p Communication Dulce Maria Montoya Daughter Health Care Agent Shon Keating Son [employer] Car e Agent Care Teams Straddle Bug Driver Relationship Specialty Start Date End Date Stephanie Rico MD [address] [place] [id number] [facility] - General 10/16/05
--- OUTSIDE RECORDS SUMMARY | 2024-07-31 06:02 | XMS_ITS | Clinical Summary ---
Author Organization [facility] Address [address] [place], [place] [id number] Care Team Providers Care Chip Tester Name Role Phone Stephanie Rico MD Primary Care Provider [phone] Allergies Active Allergy Reactions Criticality Noted Date Comments Francis Hives Medium 03/28/2021 Elemental Sulfur Anaphylaxis High 03/28/2021 Throat closes Penicillin G Anaphylaxis High 03/28/2021 Throat closes Medications Medication Sig Dispensed Refills Start Date End Date Status omeprazole (PriLOSEC) 20 MG capsule Take 20 mg by mouth daily. 0 Active simvastatin (ZOCOR) tablet 40 mg Take 40 mg by mouth every night at bedtime. 0 Active aspirin 81 MG chewable tablet Chew 81 mg by mouth daily. 0 Active Multiple Vitamin (MULTIVITAMIN ADULT PO) Take by mouth. 0 Active Glucosamine-Chondroit -Vit C-Mn (GLUCOSAMINE 1500 COMPLEX PO) Take 1,500 mg by mouth 3 (three) times a day. 0 Active Biotin 1000 MCG tablet Take 6,000 mcg by mouth 3 (three) times a day. 0 Active acetaminophen (Arthritis Pain) 650 MG CR tablet Take 650 mg by mouth every 8 (eight) hours as needed for pain. 0 Active meloxicam (MOBIC) 7.5 MG tablet TAKE 1 TABLET (7.5 MG TOTAL) BY MOUTH 2 (TWO) TIMES A DAY NEEDED. FOR PAIN 60 tablet 0 07/21/2021 Active Family History Medical History Relation Name Comments Cancer Father esophageal No Sig Med Hx Mother Relation Name Status Comments Father Mother Social History Tobacco Use Types Packs/Day Years Used Date Smoking Tobacco: Former Cigarettes Q uit: 03/28/1977 Smokeless Tobacco: Never Alcohol Use Standard Drinks/Week Comments Yes 0 (1 standard drink = 0.6 oz pur e alcohol) socially Sex and Gender Information Value Date Recorded Sex Assigned at Not on file Gender Identity Not on file Sexual Orientation Not on file Job Start Date Occupation Industry Not on file Not on file Not on file Last Filed Vital Signs Vital Sign Reading Time Taken Comments Blood Pressure 156/99 04/02/2021 8:51 AM EST Pulse 104 04/02/2021 8:51 AM EST Temperature 35.8 ??C (96.4 ??F) 04/02/2021 8:51 AM ES T Respiratory Rate - - Oxygen Saturation 98% 04/02/2021 8:51 AM EST Inhaled Oxygen Concentration - - Weight 96.2 kg (212 lb) 03/28/2021 8:28 AM EST Height 165.1 cm (5' 5 ) 03/28/2021 8:28 AM EST Body Mass Index 35.28 03/28/2021 8:28 AM EST Plan of Treatment Health Maintenance Due Date Last Done Comments Depression Screening 1954 Preventative Health Evaluation 1960 Shingrix-Zoster Vaccine (1 of 2) 1992 Fall Risk Assessment 2007 Osteoporosis Screening (DEXA Scan) 2007 DTap / Tdap / Td (2 - Td or Tdap) 06/21/2016 06/21/2006 RSV Adult > 60+ Yrs or (1 - 1-dose 75+ series) 2017 COVID-19 Vaccine ( - season) 2023 07/01/2020, 06/10/2020 Influenza Vaccine (#1) 2023 , 12/20/2019, 02/03/2019, Additional history exists Pneumococcal Vaccine Completed 02/06/2015, 10/14/19 08 Hepatitis B Vaccines Aged Out No long er eligible based on patient's age to complete this topic RSV Ped < 20 months Aged Out No longe r eligible based on patient's age to complete this topic Care Teams Chip Tester Relationship Specialty Start Date End Date Stephanie Rico MD PCP - General Internal Medicine 03/27/21
--- OUTSIDE RECORDS SUMMARY | 2024-07-31 06:02 | XMS_ITS | Clinical Summary ---
Author Organization [facility] Address [address] [place] [address] Phone Care Team Providers Care Manager Strategic Name Role Phone Stephanie Rico MD Primary Care Provider [phone] Allergies Active Allergy Reactions Criticality Noted Date Comments Chocolate Flavoring Agent (Non-Screening) Anaphylaxis High 12/24/2008 Elemental Sulfur Anaphylaxis High 03/28/2021 Throat closes Penicillin G Anaphylaxis High 03/28/2021 Throat closes Throat closes Medications atorvastatin (LIPITOR) 40 MG tablet Take 40 mg by mouth 1 (one) time each day Per Pt she is now taking 2.5 mg Active budesonide EC (ENTOCORT EC) 3 MG 24 hr capsule Take 9 mg by mouth 1 (one) time each day in the morning Active omeprazole (PriLOSEC) [address] capsule Take 20 mg by mouth 1 (one) time each day Do not crush or chew. Active famotidine (PEPCID) 10 MG tablet Take 10 mg by mouth in the morning and 10 mg in the evening. Active aspirin 325 MG tablet Take 325 mg by mouth Pt takes 325 mg AM And 325 mg PM Active Multiple Vitamin (Multivitamin Adult) tablet Take by mouth Active furosemide (LASIX) 20 MG tablet Take 1 tablet (20 mg total) by mouth 1 (one) time each day 90 tablet 5 08/10/2023 Active Active Problems Problem Noted Date Diagnosed Date Gastroesophageal reflux disease 05/11/2023 05/11/2023 Osteoarthritis of knee 05/11/2023 Hyperlipidemia 05/11/2023 05/11/2023 Obese class I 05/11/2023 05/11/2023 Nephrotoxic acute renal failure 02/09/2023 Immunizations Name Administration Dates Next Due H1N1 Inj Preservative Free 06/21/2009 Influenza Split High Dose Pr eservative Free IM 02/05/2023,12/31/2021,01/24/2021,12/19,02/03/2019,01/10/2018,01/07/2017 ,01/30/2016,02/06/2015,02/05/2014,01/24,01/22/2012,05/28/2011, 0,01/25/2009 Pfizer SARS-COV-2 07/01/2020,06/10/2020 Pneumococcal Conjugate 13-Valent 02/06/2015 Pneumococcal Polysaccharide 10/14/2007 Td 04/13/2016 Tdap 06/21/2006 Family History Medical History Relation Comments Cancer Father Relation Status Comments Father Social History Tobacco Use Types Packs/Day Years Used Date Smoking Tobacco: Former Cigarettes Smokeless Tobacco: Never Tobacco Cessation:Counseling Given: Not Answered Alcohol Use Standard Drinks/Week Comments Yes 0 (1 standard drink = 0.6 oz pur e alcohol) Comments Unknown Sex and Gender Information Value Date Recorded Sex Assigned at Not on file Legal Sex Female 10:38 AM EDT Gender Identity Not on file Sexual Orientation Not on file Last Filed Vital Signs Vital Sign Reading Time Taken Comments Blood Pressure 130/70 05/12/2023 2:03 PM EST Pulse 85 05/12/2023 2:03 PM EST Temperature - - Respiratory Rate - - Oxygen Saturation 97% 05/12/2023 2:03 PM EST Inhaled Oxygen Concentration - - Weight 92.5 kg (204 lb) 05/12/2023 2:03 PM EST Height - - Body Mass Index - - Plan of Treatment Health Maintenance Due Date Last Done Comments Influenza Vaccine (Season Ended) 2024 02/05/2023, 12/31/2021, 01/24/2021, Additional history exists Pneumococcal Vaccine: 65+ Years Completed 02/06/2015, 10/14/2007 Hepatitis B Vaccine Aged Out No longe r eligible based on patient's age to complete this topic Insurance MEDICARE [facility] MEDICARE [facility] Care Teams Manager Strategic Relationship Specialty Start Date End Date Stephanie Rico MD PCP - General Internal Medicine 02/09/23
--- OUTSIDE RECORDS SUMMARY | 2024-07-31 06:02 | XMS_ITS ---
Author Organization [facility] Address [address] [place] [address] Phone Care Team Providers Care Material Distributor Name Role Phone Stephanie Rico MD Primary Care Provider [phone] Post Acute Care Coordination Status:Ongoing (Active) Start date:07/20/2024 Enrollment date:07/20/2024 Enrollment reason:Post acute care coordination Case Team Name Relationship Phone Rashida Mendoza RN Post Acute Copying Machine Repairer(R nathan Staff) Continued Care and Services Coordination
[2024-07-31 06:44] LABS: Basophils Percent Auto 0.1 % (0-2); Eosinophils Absolute Auto 0.1 X10*3/uL (0.0-0.4); Eosinophils Percent Auto 0.7 % (0-4); Hematocrit 32.9 % (37.0-47.0); Hemoglobin 10.1 g/dl (12.0-16.0); Imm Gran Abs Auto 0.06 X10*3/uL (0.00-0.03); Imm Gran Pct Auto 0.8 % (0.0-0.4); Lymphocytes Absolute Auto 1.7 X10*3/uL (1.2-4.9); Lymphocytes Percent Auto 22.6 % (20-40); Mean Corpuscular HGB Conc 30.7 g/dl (31.0-35.0); Mean Corpuscular Hemoglobin 30.1 pg (27.0-33.0); Mean Corpuscular Volume 98.2 fL (80.0-98.0); Mean Platelet Volume 9.7 fL (9.4-12.3); Monocytes Absolute Auto 0.5 X10*3/uL (0.1-1.2); Neutrophils Absolute Auto 5.3 x10*3/uL (2.0-8.3); Neutrophils Percent Auto 69.8 % (45-73); Platelet Count 335 X10*3/uL (160-400); Red Blood Count 3.35 X10*6/uL (4.20-5.50); White Blood Count 7.7 X10*3/uL (4.8-10.8)
[2024-07-31 06:52] LABS: Anion Gap 11 (12-20); Blood Urea Nitrogen 24 mg/dL (9-16); Calcium 8.6 mg/dL (8.4-10.2); Carbon Dioxide 21 mmol/L (22-29); Chloride 112 mmol/L (96-108); Estimated Glomerular Filt Rate 49; Glucose Random 116 mg/dL (60-115); Potassium 4.2 mmol/L (3.3-5.1); Sodium 140 mmol/L (135-145)
== END 2024-07-31 05:50 | disposition home or self-care (01) ==
LOC: HO.MMNH2L 05:49
PROVIDERS: Visit Provider Family Medicine
DX: I82.492 Acute embolism and thrombosis of other specified deep vein of left lower extremity (principal)
CPT/HCPCS: 36415; 80048; 85025

== ENCOUNTER 2024-08-02 15:47 | Outpatient (REF) | payer MEDICARE, SELFPAY ==
--- OUTSIDE RECORDS SUMMARY | 2024-08-02 17:35 | XMS_ITS | Encounter Summary ---
Author Organization [facility] Address [address] [place] [address] Care Team Providers Care Shuttle Buggy Operator Name Role Phone Stephanie Rico MD Primary Care Provider [phone] Della Armstrong MD Unavailable [phone] Encounter Details Date Type Department Care Team Description 05/06/2021 Release of Information Medical Records [address] [place] [id number] Abstract, Provider Social History Tobacco Use Types Packs/Day Years Used Date Smoking Tobacco: Former Cigarettes 0.8 5 1 06/10/1969 - 04/26/2001 Smokeless Tobacco: Never Comments:quit in 2001, Start ed @ age 30 Alcohol Use Standard Drinks/Week Comments Yes 0 (1 standard drink = 0.6 oz pur e alcohol) 4-5 glasses wine per week Sex Assigned at Date Recorded Not on file Job Start Date Occupation Industry Not on file Not on file Not on file COVID-19 Exposure Response Date Recorded In the last month, have you been in contact with someone who was confirmed or suspected to have Coronavirus / COVID-19? No / Unsure 04/15/2021 9:08 AM EST documented as of this encounter Plan of Treatment Not on file documented as of this encounter Visit Diagnoses Not on filedocumented in this encounter Care Teams Shuttle Buggy Operator Relationship Specialty Start Date End Date Stephanie Rico MD [address] [place] [address] PCP - General 10/16/05 Della Armstrong MD 175 [facility] [address] [place] [address] Specialist Neurosurgery 04/15/21 documented as of this encounter
--- OUTSIDE RECORDS SUMMARY | 2024-08-02 17:35 | XMS_ITS | Encounter Summary ---
Author Organization [facility] Address [address] [place] [address] Care Team Providers Care Finance Intern Name Role Phone Stephanie Rico MD Primary Care Provider Della Armstrong MD Unavailable [phone] Encounter Details Date Type Department Care Team Description 10/02/2013 Hospital Medical Records [address] [place] [address] Ancelmo aVrela Social History Tobacco Use Types Packs/Day Years [...] file Not on file Not on file documented as of this encounter Plan of Treatment Not on file documented as of this encounter Visit Diagnoses Not on filedocumented in this encounter Care Teams Finance Intern Relationship Specialty Start Date End Date Stephanie Rico MD [address] [place] [address] PCP - General 10/16/05 Della Armstrong MD 175 [facility] [address] [place] [address] Specialist Neurosurgery 04/15/21 documented as of this encounter
--- OUTSIDE RECORDS SUMMARY | 2024-08-02 17:35 | XMS_ITS | Encounter Summary ---
Author Organization [facility] Address [address] [place] [address] Care Team Providers Care Iuss Acoustic Analyst Name Role Phone Stephanie Rico MD Primary Care Provider [phone] Della Armstrong MD Unavailable [phone] Encounter Details Date Type Department Care Team Description 04/11/2018 Slab Depiler Operator Report Medical Records [address] [place] [address] Ronit Hernandez APRN Social History Tobacco Use Types Packs/Day Years [...] on filedocumented in this encounter Care Teams Iuss Acoustic Analyst Relationship Specialty Start Date End Date Stephanie Rico MD [address] [place] [address] PCP - General 10/16/05 Della Armstrong MD [address] [address] Specialist Neurosurgery 04/15/21 documented as of this encounter
--- OUTSIDE RECORDS SUMMARY | 2024-08-02 17:35 | XMS_ITS | Encounter Summary ---
Author Organization [facility] Address [address] [place] [address] Care Team Providers Care Ecosystem Ecology Professor Name Role Phone Stephanie Rico MD Primary Care Provider [phone] Della Armstrong MD Unavailable [phone] Encounter Details Date Type Department Care Team Description 02/12/2012 Business Doc Medical Records [address] [place] [address] Abstract, Provider Social History Tobacco Use Types Packs/Day Years Used Date Smoking Tobacco: Former Smokeless Tobacco: Never Comments:quit in 2001, Start ed @ age 30 Alcohol Use Standard Drinks/Week Comments Yes 0 (1 standard drink = 0.6 oz pur e alcohol) rare Sex Assigned at Date Recorded Not on file Job Start Date Occupation Industry Not on file Not on file Not on file documented as of this encounter Plan of Treatment Not on file documented as of this encounter Visit Diagnoses Not on filedocumented in this encounter Care Teams Ecosystem Ecology Professor Relationship Specialty Start Date End Date Stephanie Rico MD [address] [place] [address] PCP - General 10/16/05 Della Armstrong MD 175 [facility] [address] [place] [address] Specialist Neurosurgery 04/15/21 documented as of this encounter
--- OUTSIDE RECORDS SUMMARY | 2024-08-02 17:35 | XMS_ITS | Clinical Summary ---
Author Organization [facility] Address [address] [place] [address] Phone Care Team Providers Care Windows Server Specialist Name Role Phone Stephanie Rico MD Primary Care Provider [phone] Allergies Active Allergy Reactions Criticality Noted Date [...] age to complete this topic Insurance MEDICARE [facility] MEDICARE [facility] Care Teams Windows Server Specialist Relationship Specialty Start Date End Date Stephanie Rico MD PCP - General Internal Medicine 02/09/23
--- OUTSIDE RECORDS SUMMARY | 2024-08-02 17:35 | XMS_ITS | Encounter Summary ---
Author Organization [facility] Address [address] [place] [address] Care Team Providers Care Counter Weigher Name Role Phone Stephanie Rico MD Primary Care Provider [phone] Della Armstrong MD Unavailable [phone] Encounter Details Date Type Department Care Team Description 09/07/2019 Hospital Medical Records [address] [place], [place] [address] [place] [address] Social History Tobacco Use Types Packs/Day Years [...] on filedocumented in this encounter Care Teams Counter Weigher Relationship Specialty Start Date End Date Stephanie Rico MD [address] [place] [address] PCP - General 10/16/05 Della Armstrong MD 175 [facility] [address] [place] [address] Specialist Neurosurgery 04/15/21 documented as of this encounter
--- OUTSIDE RECORDS SUMMARY | 2024-08-02 17:35 | XMS_ITS | Encounter Summary ---
Author Organization [facility] Address [address] [place] [address] Care Team Providers Care V Belt Inspector Name Role Phone Stephanie Rico MD Primary Care Provider Della Armstrong MD Unavailable [phone] Encounter Details Date Type Department Care Team Description 03/08/2017 Business Doc Medical Records [address] [place] [address] Abstract, Provider Social History Tobacco Use Types [...] on filedocumented in this encounter Care Teams V Belt Inspector Relationship Specialty Start Date End Date Stephanie Rico MD [address] [place] [address] PCP - General 10/16/05 Della Armstrong MD 175 [facility] [address] [place] [address] Specialist Neurosurgery 04/15/21 documented as of this encounter
--- OUTSIDE RECORDS SUMMARY | 2024-08-02 17:35 | XMS_ITS | Encounter Summary ---
Author Organization [facility] Address [address] [place] [address] Care Team Providers Care Miter Sawyer Name Role Phone Stephanie Rico MD Primary Care Provider Della Armstrong MD Unavailable [phone] Encounter Details Date Type Department Care Team Description 03/31/2023 Bench Molder Apprentice Report Medical Records [address] [place] [address] Sadiq Xavier Social History Tobacco Use Types Packs/Day Years [...] on filedocumented in this encounter Care Teams Miter Sawyer Relationship Specialty Start Date End Date Stephanie Rico MD [address] [place] [address] PCP - General 10/16/05 Della Armstrong MD 175 [facility] [address] [place] [address] Specialist Neurosurgery 04/15/21 documented as of this encounter
--- OUTSIDE RECORDS SUMMARY | 2024-08-02 17:35 | XMS_ITS | Encounter Summary ---
Author Organization [facility] Address [address] [place] [address] Care Team Providers Care Patent Lawyer Name Role Phone Stephanie Rico MD Primary Care Provider Della Armstrong MD Unavailable [phone] Encounter Details Date Type Department Care Team Description 02/16/2006 Hospital Medical Records [address] [place] [address] Jesus Mc MD Social History Tobacco Use Types Packs/Day Years [...] on filedocumented in this encounter Care Teams Patent Lawyer Relationship Specialty Start Date End Date Stephanie Rico MD [address] [place] [address] PCP - General 10/16/05 Della Armstrong MD [address] [address] Specialist Neurosurgery 04/15/21 documented as of this encounter
--- OUTSIDE RECORDS SUMMARY | 2024-08-02 17:35 | XMS_ITS | Encounter Summary ---
Author Organization [facility] Address [address] [place] [address] Care Team Providers Care Sewer Pipe Layer Name Role Phone Stephanie Rico MD Primary Care Provider [phone] Della Armstrong MD Unavailable [phone] Encounter Details Date Type Department Care Team Description 07/16/2016 Business Doc Medical Records [address] [place] [address] Abstract, Provider Social History Tobacco Use Types [...] on filedocumented in this encounter Care Teams Sewer Pipe Layer Relationship Specialty Start Date End Date Stephanie Rico MD [address] [place] [address] PCP - General 10/16/05 Della Armstrong MD 175 [facility] [address] [place] [address] Specialist Neurosurgery 04/15/21 documented as of this encounter
--- OUTSIDE RECORDS SUMMARY | 2024-08-02 17:35 | XMS_ITS | Encounter Summary ---
Author Organization [facility] Address [address] [place] [address] Care Team Providers Care Nutrition Faculty Member Name Role Phone Stephanie Rico MD Primary Care Provider [phone] Della Armstrong MD Unavailable [phone] Encounter Details Date Type Department Care Team Description 01/19/2022 Hospital Medical Records [address] [place] [address] Dulce Maria Aggarwal MD 175 [facility] [address] [place] [address] Social History Tobacco Use Types Packs/Day Years [...] Exposure Response Date Recorded In the last 10 days, have yo u been in contact with someone who was confirmed or suspected to have Coronavirus/COVID-19? No / Unsure 12/22/2021 11:02 AM EDT documented as of this encounter Plan of Treatment Not on file documented as of this encounter Visit Diagnoses Not on filedocumented in this encounter Care Teams Nutrition Faculty Member Relationship Specialty Start Date End Date Stephanie Rico MD [address] [place] [address] PCP - General 10/16/05 Della Armstrong MD [address] [place] [address] [address] [place] [address] Specialist Neurosurgery 04/15/21 documented as of this encounter
--- OUTSIDE RECORDS SUMMARY | 2024-08-02 17:35 | XMS_ITS | Encounter Summary ---
Author Organization [facility] Address [address] [place] [address] Care Team Providers Care Patrol Inspector Name Role Phone Stephanie Rico MD Primary Care Provider [phone] Della Armstrong MD Unavailable [phone] Encounter Details Date Type Department Care Team Description 12/30/2011 Full Stack Net Developer Report Medical Records [address] [place] [address] Mamadou Garcia Social History Tobacco Use Types Packs/Day Years [...] on filedocumented in this encounter Care Teams Patrol Inspector Relationship Specialty Start Date End Date Stephanie Rico MD [address] [place] [address] PCP - General 10/16/05 Della Armstrong MD 175 [facility] [address] [place] [address] Specialist Neurosurgery 04/15/21 documented as of this encounter
--- OUTSIDE RECORDS SUMMARY | 2024-08-02 17:35 | XMS_ITS | Encounter Summary ---
Author Organization [facility] Address [address] [place] [address] Care Team Providers Care Sales Agent Marine Insurance Name Role Phone Stephanie Rico MD Primary Care Provider [phone] Della Armstrong MD Unavailable [phone] Encounter Details Date Type Department Care Team Description 07/16/2016 Night Triage Doc Medical Records [address] [place] [address] Abstract, Provider Social History Tobacco Use Types [...] on filedocumented in this encounter Care Teams Sales Agent Marine Insurance Relationship Specialty Start Date End Date Stephanie Rico MD [address] [place] [address] PCP - General 10/16/05 Delal Armstrong MD 175 [facility] [address] [place] [address] Specialist Neurosurgery 04/15/21 documented as of this encounter
--- OUTSIDE RECORDS SUMMARY | 2024-08-02 17:35 | XMS_ITS | Encounter Summary ---
Author Organization [facility] Address [address] [place] [address] Care Team Providers Care Regulatory Affairs Strategy Specialist Name Role Phone Stephanie Rico MD Primary Care Provider [phone] Della Armstrong MD Unavailable [phone] Reason for Visit * Reason Onset Date Comments Prior Authorization 07/23/2021 emg Encounter Details Date Type Department Care Team Description 07/23/2021 Telephone Internal Medicine - [address], [address] [place] [address] Iman Real, PA-C [address] [place] [address] Prior Authorization (emg) Social History Tobacco Use Types Packs/Day Years [...] suspected to have Coronavirus/COVID-19? No / Unsure 07/22/2021 2:36 PM EDT documented as of this encounter Miscellaneous Notes * Telephone Encounter - Kirsten Katz - 07/23/2021 11:19 AM EDT Forwarded to [facility]. They will obtian auth and call patient to schedule appointment documented in this encounter Plan of Treatment Not on file documented as of this encounter Visit Diagnoses Not on filedocumented in this encounter Care Teams Regulatory Affairs Strategy Specialist Relationship Specialty Start Date End Date Stephanie Rico MD [address] [place] [address] PCP - General 10/16/05 Della Armstrong MD 175 [facility] [address] [place] [address] Specialist Neurosurgery 04/15/21 documented as of this encounter
--- OUTSIDE RECORDS SUMMARY | 2024-08-02 17:35 | XMS_ITS | Encounter Summary ---
Author Organization [facility] Address [address] [place] [address] Care Team Providers Care Jewel Hole Gauger Name Role Phone Stephanie Rico MD Primary Care Provider [phone] Della Armstrong MD Unavailable [phone] Encounter Details Date Type Department Care Team Description 10/25/2021 Hospital Medical Records [address] [place] [address] Prudence Scott Social History Tobacco Use Types Packs/Day Years [...] Recorded In the last 10 days, have danielle brown been in contact with someone who was confirmed or suspected to have Coronavirus/COVID-19? No / Unsure 09/26/2021 9:59 AM EDT documented as of this encounter Plan of Treatment Not on file documented as of this encounter Visit Diagnoses Not on filedocumented in this encounter Care Teams Jewel Hole Gauger Relationship Specialty Start Date End Date Stephanie Rico MD [address] [place] [address] PCP - General 10/16/05 Della Armstrong MD 175 [facility] [address] [place] [address] Specialist Neurosurgery 04/15/21 documented as of this encounter
--- OUTSIDE RECORDS SUMMARY | 2024-08-02 17:35 | XMS_ITS | Clinical Summary ---
Author Organization [facility] Address [address] [place], [place] [address] Care Team Providers Care Molded Parts Inspector Name Role Phone Stephanie Rico MD Primary Care Provider [phone] Allergies Active Allergy Reactions Criticality Noted Date Comments Lynn Hives Medium 03/28/2021 Elemental Sulfur Anaphylaxis High [...] age to complete this topic Care Teams Molded Parts Inspector Relationship Specialty Start Date End Date Stephanie Rico MD PCP - General Internal Medicine 03/27/21
--- OUTSIDE RECORDS SUMMARY | 2024-08-02 17:35 | XMS_ITS | Encounter Summary ---
Author Organization [facility] Address [address] [place] [address] Care Team Providers Care Manager Drug Safety Name Role Phone Stephanie Rico MD Primary Care Provider [phone] Della Armstrong MD Unavailable [phone] Encounter Details Date Type Department Care Team Description 07/29/2021 [facility] 175 [facility] [address] [place] [id number] Iman Real, PA-C 175 [facility] [address] [place] [address] Social History Tobacco Use Types Packs/Day Years [...] PM EDT documented as of this encounter Plan of Treatment Not on file documented as of this encounter Visit Diagnoses Not on filedocumented in this encounter Care Teams Manager Drug Safety Relationship Specialty Start Date End Date Stephanie Rico MD [address] [place] [address] PCP - General 10/16/05 Della Armstrong MD [address] [place] [address] Specialist Neurosurgery 04/15/21 documented as of this encounter
--- OUTSIDE RECORDS SUMMARY | 2024-08-02 17:35 | XMS_ITS | Encounter Summary ---
Author Organization [facility] Address [address] [place] [address] Care Team Providers Care Match Maker Name Role Phone Stephanie Rico MD Primary Care Provider Della Armstrong MD Unavailable [phone] Encounter Details Date Type Department Care Team Description 06/19/2022 Software Educator Report Medical Records [address] [place] [address] Abstract, Provider Social History Tobacco Use Types [...] on filedocumented in this encounter Care Teams Match Maker Relationship Specialty Start Date End Date Stephanie Rico MD [address] [place] [address] PCP - General 10/16/05 Della Armstrong MD 175 [facility] [address] [place] [address] Specialist Neurosurgery 04/15/21 documented as of this encounter
--- OUTSIDE RECORDS SUMMARY | 2024-08-02 17:35 | XMS_ITS | Encounter Summary ---
Author Organization [facility] Address [address] [place] [address] Care Team Providers Care Move Coordinator Name Role Phone Stephanie Rico MD Primary Care Provider [phone] Della Armstrong MD Unavailable [phone] Encounter Details Date Type Department Care Team Description 03/09/2012 Solar Power Installer Report Medical Records [address] [place] [address] Sherif Bautista MD [address] [address] Social History Tobacco Use Types Packs/Day Years [...] on filedocumented in this encounter Care Teams Move Coordinator Relationship Specialty Start Date End Date Stephanie Rico MD [address] [place] [address] PCP - General 10/16/05 Della Armstrong MD [address] [address] Specialist Neurosurgery 04/15/21 documented as of this encounter
--- OUTSIDE RECORDS SUMMARY | 2024-08-02 17:35 | XMS_ITS | Encounter Summary ---
Author Organization [facility] Address [address] [place] [address] Care Team Providers Care Aged Or Disabled Care Worker Name Role Phone Stephanie Rico MD Primary Care Provider [phone] Della Armstrong MD Unavailable [phone] Encounter Details Date Type Department Care Team Description 04/07/2021 Shine Worker Report Medical Records [address] [place] [address] [facility] Social History Tobacco Use Types Packs/Day Years [...] have Coronavirus / COVID-19? No / Unsure 04/04/2021 7:26 AM EST documented as of this encounter Plan of Treatment Not on file documented as of this encounter Visit Diagnoses Not on filedocumented in this encounter Care Teams Aged Or Disabled Care Worker Relationship Specialty Start Date End Date Stephanie Rico MD [address] [place], [place] [phone] PCP - General 10/16/05 Della Armstrong MD [address] [place] [address] Specialist Neurosurgery 04/15/21 documented as of this encounter
--- OUTSIDE RECORDS SUMMARY | 2024-08-02 17:35 | XMS_ITS | Encounter Summary ---
Author Organization [facility] Address [address] [place] [address] Care Team Providers Care Rn Oncology Name Role Phone Stephanie Rico MD Primary Care Provider Della Armstrong MD Unavailable [phone] Encounter Details Date Type Department Care Team Description 06/03/2016 Hospital Medical Records [address] [place] [address] Pradip Marin Social History Tobacco Use Types Packs/Day Years [...] on filedocumented in this encounter Care Teams Rn Oncology Relationship Specialty Start Date End Date Stephanie Rico MD [address] [place], [place] [phone] PCP - General 10/16/05 Della Armstrong MD [address] [address] Specialist Neurosurgery 04/15/21 documented as of this encounter
--- OUTSIDE RECORDS SUMMARY | 2024-08-02 17:35 | XMS_ITS | Encounter Summary ---
Author Organization [facility] Address [address] [place] [address] Care Team Providers Care New Patient Escort Name Role Phone Stephanie Rico MD Primary Care Provider [phone] Della Armstrong MD Unavailable [phone] Encounter Details Date Type Department Care Team Description 03/30/2024 Orders Only Medical Records [address] [place] [address] Social History Tobacco Use Types Packs/Day Years [...] on file documented as of this encounter Procedures Procedure Name Priority Date/Time Associated Diagnosis Comments OUTSIDE PET Routine 11/18/2023 documented in this encounter Results * OUTSIDE PET (11/18/2023) [facility] RADIOLOGY documented in this encounter Visit Diagnoses Not on filedocumented in this encounter Care Teams New Patient Escort Relationship Specialty Start Date End Date Stephanie Rico MD [address] [place] [address] PCP - General 10/16/05 Della Armstrong MD [address] [place] [address] Specialist Neurosurgery 04/15/21 documented as of this encounter
--- OUTSIDE RECORDS SUMMARY | 2024-08-02 17:35 | XMS_ITS | Encounter Summary ---
Author Organization [facility] Address [address] [place] [address] Care Team Providers Care Cereal Maker Name Role Phone Stephanie Rico MD Primary Care Provider [phone] Della Armstrong MD Unavailable [phone] Encounter Details Date Type Department Care Team Description 10/30/2009 Telephone Orthopedic Surgery - [place] [address] [address] Pradip Ross MD Social History Tobacco Use Types Packs/Day Years Used Date Smoking Tobacco: Former Comments:quit in 2001, Start ed @ age 30 Alcohol Use Standard Drinks/Week Comments Yes 0 (1 standard drink = 0.6 oz pur e alcohol) Sex Assigned at Date Recorded Not on file Job Start Date Occupation Industry Not on file Not on file Not on file documented as of this encounter Plan of Treatment Not on file documented as of this encounter Visit Diagnoses Not on filedocumented in this encounter Care Teams Cereal Maker Relationship Specialty Start Date End Date Stephanie Rico MD [address] [place] [address] PCP - General 10/16/05 Della Armstrong MD 175 [facility] [address] [place] [address] Specialist Neurosurgery 04/15/21 documented as of this encounter
--- OUTSIDE RECORDS SUMMARY | 2024-08-02 17:35 | XMS_ITS | Encounter Summary ---
Author Organization [facility] Address [address] [place] [address] Care Team Providers Care Liner Roll Changer Name Role Phone Stephanie Rico MD Primary Care Provider [phone] Della Armstrong MD Unavailable [phone] Encounter Details Date Type Department Care Team Description 10/25/2021 Hospital Medical Records [address] [place] [address] Prudence Scott Social History Tobacco Use Types [...] on filedocumented in this encounter Care Teams Liner Roll Changer Relationship Specialty Start Date End Date Stephanie iRco MD [address] [place] [address] PCP - General 10/16/05 Della Armstrong MD 175 [facility] [address] [place] [address] Specialist Neurosurgery 04/15/21 documented as of this encounter
--- OUTSIDE RECORDS SUMMARY | 2024-08-02 17:35 | XMS_ITS | Encounter Summary ---
Author Organization [facility] Address [address] [place] [address] Care Team Providers Care Land Mobile Radio Technician Name Role Phone Stephanie Rico MD Primary Care Provider [phone] Della Armstrong MD Unavailable [phone] Encounter Details Date Type Department Care Team Description 06/02/2016 Hospital Medical Records [address] [place] [address] Angela Sharma MD Social History Tobacco Use Types Packs/Day [...] on filedocumented in this encounter Care Teams Land Mobile Radio Technician Relationship Specialty Start Date End Date Stephanie Rico MD [address] [place], [place] [phone] PCP - General 10/16/05 Della Armstrong MD [address] [address] Specialist Neurosurgery 04/15/21 documented as of this encounter
--- OUTSIDE RECORDS SUMMARY | 2024-08-02 17:35 | XMS_ITS ---
Author Organization [facility] Address [address] [place] [address] Phone Care Team Providers Care Wiper Blender Name Role Phone Stephanie Rico MD Primary Care Provider [phone] Post Acute Care Coordination Status:Ongoing (Active) Start date:07/20/2024 Enrollment date:07/20/2024 Enrollment reason:Post acute care coordination Case Team Name Relationship Phone Rashida Mendoza RN Post Acute Skoog Operator(R nathan Staff) Continued Care and Services Coordination
--- OUTSIDE RECORDS SUMMARY | 2024-08-02 17:35 | XMS_ITS | Encounter Summary ---
Author Organization [facility] Address [address] [place] [address] Care Team Providers Care Aquatic Laborer Name Role Phone Stephanie Rico MD Primary Care Provider [phone] Della Armstrong MD Unavailable [phone] Reason for Visit * Reason Onset Date Comments hospital follow up 03/31/2021 Encounter Details Date Type Department Care Team Description 03/31/2021 Telephone Adult Medicine [address] [id number] Stephanie Rico MD [address] [place] [phone] hospital follow up Social History Tobacco Use Types Packs/Day Years [...] have Coronavirus / COVID-19? No / Unsure 03/28/2021 11:09 AM EST documented as of this encounter Miscellaneous Notes * Telephone Encounter - Diane Simpson - 04/29/2021 9:52 AM EST Attempted to contact patient, unable to leave vm * Telephone Encounter - Douglas Miguelina - 03/31/2021 2:48 PM EST Hospital follow up appointment needed Hospital patient was treated at: [facility] Was this only an ER visit or was the patient admitted to the hospital? ER visit only Date of visit if ER visit only: 03/29/21 If patient was admitted what was the date of discharge? N/A Reason/diagnosis for visit or stay: Fall When was the patient told to follow up? Once available Was visit or stay related to an injury? YES If yes, what was the date of injury (DOI)? 03/28/21 If yes, was the injury due to N/A documented in this encounter Plan of Treatment Not on file documented as of this encounter Visit Diagnoses Not on filedocumented in this encounter Care Teams Aquatic Laborer Relationship Specialty Start Date End Date Stephanie Rico MD [address] [place] [address] PCP - General 10/16/05 Della Armstrong MD 175 [facility] [address] [place] [address] Specialist Neurosurgery 04/15/21 documented as of this encounter
--- OUTSIDE RECORDS SUMMARY | 2024-08-02 17:35 | XMS_ITS | Clinical Summary ---
Author Organization [facility] Address [address] [place] [address] Phone Care Team Providers Care Handle Lathe Operator Name Role Phone Stephanie Rico MD Primary Care Provider [phone] Allergies Active Allergy Reactions Criticality Noted Date [...] - 07/20/2024 12:26 PM EDT Hospital Encounter [facility] Medical Surgical Unit [address] [place] [id number] Antonio Wynne MD Santoyo-Pach eco, Omar D, MD Pain (Primary Dx); Pulmonary air embolism, initial encounter ([facility]); Venous thromboembolism (VTE); Nausea Discharge Disposition: Snf Facility from Last 3 Months Immunizations Name [...] TONSILLECTOMY COLONOSCOPY 12/30 PROCEDURE: HISTORICAL COLONOSCOPY; COMMENT: [email or web address]; negative screening examination OTHER SURGICAL HISTORY 02/2019 PROCEDURE: MAMMOGRAM CATARACT EXTRACTION 2013 Bilateral PROCEDURE: HISTORICAL CATARACT REMOVAL BREAST BIOPSY 1993 Left PROCEDURE: BX BREAST; PERC NEEDLE CORE W/IMAG GUID COLONOSCOPY 1991 PROCEDURE: HISTORICAL COLONOSCOPY; COMMENT: Negative screening examination COLONOSCOPY 05/07/2016 PROCEDURE: HISTORICAL COLONOSCOPY; COMMENT: RBMG; diverticulosis, otherwise negative screening examination. BREAST SURGERY 1993 Left PROCEDURE: KS UNLISTED PROCEDURE BREAST BELPHAROPTOSIS REPAIR TOTAL KNEE [...] kidney disease) stage 3, GFR 30-59 ml/min ([facility]) 08/11/2013 DX:CKD (chronic kidney dise ase) stage 3, GFR 30-59 ml/min ([facility]) Tricuspid regurgitation 10/09/2013 DX:Tricu spid regurgitation; COMMENT: Mild to mod, echo 10/07 Nl EF History of sepsis DX:History of sepsis; COMMENT: Hospitalized [facility] August 2019 History of colitis DX:History of colitis; COMMENT: Hospitalized at [facility] August 2019 Diverticulosis DX:Diverticulosi s Primary osteoarthritis of both knees 07/30/2020 DX:Primary osteoarthritis of both knees Melanoma ([facility]) 03/12/2022 DX:Melanoma ( [facility]) Melanoma ([facility]) 03/12/2022 DX:Melanoma ( [facility]) Monoclonal gammopathy 12/30/2023 DX:Mon[place] nal gammopathy Polymyositis [...] age to complete this topic Meningococcal B Vaccine Aged Out No l onger eligible based on patient's age to complete [...] 2 VIEWS STAT 07/16/2024 10:37 AM EDT [id number], RSV, FLU A AND B QUALITATIVE RT-PCR, [...] of4 resultswithin the time period is included. [facility] WBC 9.2 4.8 - 10.8 K/mcL LAB HEMETOLOGY METHOD 07/19/2024 7:[address] [facility] RBC 3.00(L) 3.80 - 4.80 M/mcL LAB HEMETOLOGY METHOD 07/19/2024 7:[address] [facility] Hemoglobin 8.9(L) 11.5 - 16.0 g/dL LAB HEMETOLOGY METHOD 07/19/2024 7:[address] [facility] Hematocrit 29.1(L) 35.0 - 47.0 % LAB HEMETOLOGY METHOD 07/19/2024 7:[address] [facility] MCV 96.7 79.0 - 98.0 FL LAB HEMETOLOGY METHOD 07/19/2024 7:[address] [facility] MCH 29.6 27.0 - 32.0 pcg LAB HEMETOLOGY METHOD 07/19/2024 7:[address] [facility] MCHC 30.6(L) 32.0 - 37.0 g/dL LAB HEMETOLOGY METHOD 07/19/2024 7:[address] [facility] RDW 15.6(H) 11.0 - 15.0 % LAB HEMETOLOGY METHOD 07/19/2024 7:[address] [facility] Platelets 584(H) 130 - 400 K/mcL LAB HEMETOLOGY METHOD 07/19/2024 7:[address] [facility] MPV 9.3 7.0 - 11.0 FL LAB HEMETOLOGY METHOD 07/19/2024 7:[address] [facility] NRBC 0.0 <1.0 % LAB HEMETOLOGY METHOD 07/19/2024 7:[address] [facility] NRBC Absolute 0.00 <0.10 K/[facility] LAB HEMETOLOGY METHOD 07/19/2024 7:[address] [facility] Neutrophils Relative 60.7 % LAB HEMETOLOGY METHOD 07/19/2024 7:[address] [facility] Lymphocytes Relative 27.2 % LAB HEMETOLOGY METHOD 07/19/2024 7:[address] [facility] Monocytes Relative 8.6 % LAB HEMETOLOGY METHOD 07/19/2024 7:[address] [facility] Eosinophils Relative 2.3 % LAB HEMETOLOGY METHOD 07/19/2024 7:[address] [facility] Basophils Relative 0.4 % LAB HEMETOLOGY METHOD 07/19/2024 7:[address] [facility] Immature Granulocytes Relative 0.8 % LAB HEMETOLOGY METHOD 07/19/2024 7:[address] [facility] Neutrophils Absolute 5.57 1.50 - 7.00 K/mcL LAB HEMETOLOGY METHOD 07/19/2024 7:[address] [facility] Lymphocytes Absolute 2.50 1.00 - 5.00 K/mcL LAB HEMETOLOGY METHOD 07/19/2024 7:[address] [facility] Monocytes Absolute 0.79 0.20 - 1.00 K/mcL LAB HEMETOLOGY METHOD 07/19/2024 7:[address] [facility] Eosinophils Absolute 0.21 0.00 - 0.50 K/mcL LAB HEMETOLOGY METHOD 07/19/2024 7:[address] [facility] Basophils Absolute 0.04 0.00 - 0.20 K/mcL LAB HEMETOLOGY METHOD 07/19/2024 7:[address] [facility] Immature Granulocytes Absolute 0.07(H) 0.00 - 0.03 K/mcL LAB HEMETOLOGY METHOD 07/19/2024 7:[address] [facility] Blood Venous blood specimen / Unknown Venipuncture / Unknown 07/19/2024 6:32 AM EDT 07/19/2024 6:41 AM EDT us Leo Neumann MD LAB BLOOD ORDERABLES F inal Result [facility] [address] [place] [address], [place] [phone] * (ABNORMAL) Basic metabolic panel (07/19/2024 6:32 AM EDT) Only the most recent of3 resultswithin the time period is included. Sodium 135 133 - 145 mmol/L LAB CHEMISTRY METHOD 07/19/2024 7:[address] [facility] Potassium 3.9 3.5 - 5.5 mmol/L LAB CHEMISTRY METHOD 07/19/2024 7:[address] [facility] Chloride 107 96 - 110 mmol/L LAB CHEMISTRY METHOD 07/19/2024 7:[address] [facility] CO2 22 21 - 32 mmol/L LAB CHEMISTRY METHOD 07/19/2024 7:[address] [facility] Anion Gap 6 3 - 11 LAB CHEMISTRY METHOD 07/19/2024 7:[address] [facility] Glucose 127(H) 70 - 100 mg/dL LAB CHEMISTRY METHOD 07/19/2024 7:[address] [facility] BUN 13 5 - 25 mg/dL LAB CHEMISTRY METHOD 07/19/2024 7:[address] [facility] Creatinine 1.10 0.50 - 1.10 mg/dL LAB CHEMISTRY METHOD 07/19/2024 7:[address] [facility] eGFR 50(L) >=60 mL/min/1. 73m2 LAB CHEMISTRY METHOD 07/19/2024 7:26 AM EDT [facility] Comment:Calculation based on the??Chronic Kidney Disease Epidemiology Collaboration (CKD-EPI) equation refit??without adjustment for race. BUN/Creatinine Ratio 11.8 LAB CHEMISTRY METHOD 07/19/2024 7:26 AM EDT [facility] Calcium 9.0 8.5 - 10.5 mg/dL LAB CHEMISTRY METHOD 07/19/2024 7:26 AM EDT [facility] Blood Venous blood specimen / Unknown Venipuncture / Unknown 07/19/2024 6:32 AM EDT 07/19/2024 6:41 AM EDT us Leo Neumann MD LAB BLOOD ORDERABLES F inal Result [facility] [address] [place] [address], [place] [phone] * TRANSTHORACIC ECHOCARDIOGRAM (TTE) COMPLETE W/ CONTRAST (07/17/2024 1:00 PM EDT) Left Atrium Minor [place] 5.0 cm CV PACS Left Atrium Major [place] 5.5 cm CV PACS LA Area Sys [...] Volume 74 mL CV PACS MV Deceleration Avery 5.0 m/s2 CV PACS E Wave Deceleration [...] LAB COAGULATION METHOD 07/17/2024 1:24 PM EDT [facility] Blood Venous blood specimen / Unknown Venipuncture / Unknown 07/17/2024 12:57 PM EDT 07/17/2024 1:01 PM EDT Narrative [facility] - 07/17/2024 1:24 PM EDT Therapeutic range listed is for Unfractionated Heparin. LMW Heparin therapeutic range: 0.50-1.20 IU/mL us Leo Neumann MD LAB BLOOD ORDERABLES F inal Result [facility] [address] [place] [address], [place] [phone] * (ABNORMAL) Sedimentation rate (07/17/2024 8:10 AM EDT) Sed Rate 129(H) 0 - 30 mm/hr LAB HEMETOLOGY METHOD 07/17/2024 9:06 AM EDT [facility] Blood Venous blood specimen / Unknown Venipuncture / Unknown 07/17/2024 8:10 AM EDT 07/17/2024 8:25 AM EDT us Leo Neumann MD LAB BLOOD ORDERABLES F inal Result [facility] [address] [place] [address], [place] [phone] * Vascular US duplex lower extremity venous [...] Time - STAT (07/16/2024 12:07 PM EDT) [facility] aPTT 26.2 24.1 - 39.3 sec LAB COAGULATION METHOD 07/16/2024 12:52 PM EDT [facility] Blood Venous blood specimen / Unknown Venipuncture / Unknown 07/16/2024 12:07 PM EDT 07/16/2024 12:42 PM EDT Meghan JARAMILLO LAB BLOOD ORDERABLES F inal Result [facility] [address] [place] [address], [place] [phone] * Prothrombin Time with INR - STAT (07/16/2024 12:07 PM EDT) [facility] Protime 13.6 10.6 - 13.9 sec LAB COAGULATION METHOD 07/16/2024 12:52 PM EDT [facility] INR 1.1 LAB COAGULATION METHOD 07/16/2024 12:52 PM EDT [facility] Blood Venous blood specimen / Unknown Venipuncture / Unknown 07/16/2024 12:07 PM EDT 07/16/2024 12:42 PM EDT Meghan JARAMILLO LAB BLOOD ORDERABLES F inal Result Performing Organization Address [facility] Co de Phone Number [facility] [address] [place] [address], [place] [phone] * Troponin I high sensitivity (07/16/2024 11:19 AM EDT) Only the most recent of2 resultswithin the time period is included. [facility] High Sensitivity Troponin I 4 <=54 ng/L LAB CHEMISTRY METHOD 07/16/2024 12:19 PM EDT [facility] Blood Venous blood specimen / Unknown Venipuncture / Unknown 07/16/2024 11:19 AM EDT 07/16/2024 11:46 AM EDT Narrative [facility] - 07/16/2024 12:19 PM EDT High levels of biotin in samples may falsely decrease hsTroponin values. ??Use caution when interpreting hsTroponin results in patients taking biotin who exhibit renal impairment (eGFR <60) or in patients taking more than 20 mg/day of biotin. Antonio Wynne MD LAB BLOOD ORDERABLES Debi l Result Performing Organization Address [facility] Co de Phone Number [facility] [address] [place] [address], [place] [phone] * CT Angio Chest wo and/or w [...] to the referring provider by secure message ([email or web address]) at the time of interpretation on 07/16/24. Teletabitha JARAMILLO ([id number]) -------- FINAL REPORT -------- Dictated By: Jessica Ashford Dictated Date: 07/16/2024 11:24 ET Assigned Physician: Jessica Ashford Reviewed and Electronically Signed By: Jessica Ashford Signed Date: 07/16/2024 11:34 ET Workstation ID: [id number] Transcribed By: Self Edit Transcribed Date: 07/16/2024 [...] an independent CT workstation. DLP: 500.78 mGy/cm ConvertMedia VCT Iterative reconstruction technique Findings: The pulmonary [...] an independent CT workstation. DLP: 500.78 mGy/cm UstreamT Iterative reconstruction technique Findings: The pulmonary arterial [...] were conveyed to the referring provider by [email or web address] ([email or web address]) at the time of interpretation on 07/16/24. Jax JARAMILLO ([id number]) -------- FINAL REPORT -------- Dictated By: Jessica Ashford Dictated Date: 07/16/2024 11:24 ET Assigned Physician: Jessica Ashford Reviewed and Electronically Signed By: Jessica Ashford Signed Date: 07/16/2024 11:34 ET Workstation ID: [id number] Transcribed By: Self Edit Transcribed Date: 07/16/2024 [...] GEMUSE QTc 463 ms GEMUSE P Wave Claremont 49 degrees GEMUSE R [place] 12 degrees GEMUSE T [place] 39 degrees GEMUSE ECG Interpretation Sinus tachycardia [...] further characterization if clinically appropriate. Telerad ELLA ([id number]) -------- FINAL REPORT -------- Dictated By: Jessica Ashford Dictated Date: 07/16/2024 10:38 ET Assigned Physician: Jessica Ashford Reviewed and Electronically Signed By: Jessica Ashford Signed Date: 07/16/2024 10:40 ET Workstation ID: [id number] Transcribed By: Self Edit Transcribed Date: 07/16/2024 [...] for further characterization if clinicallyappropriate. Telerad ELLA ([id number]) -------- FINAL REPORT -------- Dictated By: Jessica Ashford Dictated Date: 07/16/2024 10:38 ET Assigned Physician: Jessica Ashford Reviewed and Electronically Signed By: Jessica Ashford Signed Date: 07/16/2024 10:40 ET Workstation ID: [id number] Transcribed By: Self Edit Transcribed Date: 07/16/2024 10:38 ET Antonio Wynne MD IMG XR PROCEDURES Final R esult * [id number], RSV, Influenza A and B qualitative RT-PCR (07/16/2024 10:00 AM EDT) Influenza A PCR Not Detected Not Detected LAB MICROBIOLOGY METHOD 07/16/2024 11:16 AM EDT [facility] Influenza B PCR Not Detected Not Detected LAB MICROBIOLOGY METHOD 07/16/2024 11:16 AM EDT [facility] RSV PCR Not Detected Not Detected LAB MICROBIOLOGY METHOD 07/16/2024 11:16 AM EDT [facility] SARS COV-2 Not Detected Not Detected LAB MICROBIOLOGY METHOD 07/16/2024 11:16 AM EDT [facility] Swab Both anterior nares / Unknown Non-blood Collection / Unknown 07/16/2024 10:00 AM EDT 07/16/2024 10:09 AM EDT Narrative [facility] - 07/16/2024 11:16 AM EDT Disclaimer: ??Testing was performed using the [employer] GeneXpert Xpress SARS-CoV-2 _Flu_RSV PLUS PCR assay. [...] for Healthcare providers can be found at https://www.fda.gov/media/093623/download. ?? Fact sheet for Healthcare patients can be found at https://www.fda.gov/media/186381/download. us Meghan JARAMILLO LAB MICROBIOLOGY - GEN ERAL ORDERABLES Final Result Performing Organization Address [facility] Co de Phone Number [facility] [address] [place] [address], [place] [phone] * (ABNORMAL) Thyroid stimulating hormone with reflex to free t4 and free t3 (TSH Reflex) (07/16/2024 9:43 AM EDT) TSH 5.73(H) 0.40 - 4.00 mcIU/mL LAB CHEMISTRY METHOD 07/16/2024 11:43 AM EDT [facility] Blood Venous blood specimen / Unknown Venipuncture / Unknown 07/16/2024 9:43 AM EDT 07/16/2024 10:10 AM EDT Meghan JARAMILLO LAB BLOOD ORDERABLES F inal Result Performing Organization Address [facility] Co de Phone Number [facility] [address] [place] [address], [place] [phone] * Free thyroxine with reflex to free triiodothyronine (07/16/2024 9:43 AM EDT) Free T4 1.06 0.70 - 1.80 ng/dL LAB CHEMISTRY METHOD 07/16/2024 12:53 PM EDT [facility] Blood Venous blood specimen / Unknown Venipuncture / Unknown 07/16/2024 9:43 AM EDT 07/16/2024 10:10 AM EDT us Meghan JARAMILLO LAB BLOOD ORDERABLES F inal Result Performing Organization Address [facility]/ZIP Co de Phone Number [facility] [address] [place] [address], * (ABNORMAL) Triiodothyronine free (07/16/2024 9:43 AM EDT) T3, Free 192(L) 230 - 420 pcg/dL LAB CHEMISTRY METHOD 07/16/2024 2:10 PM EDT [facility] Blood Venous blood specimen / Unknown Venipuncture / Unknown 07/16/2024 9:43 AM EDT 07/16/2024 10:10 AM EDT Meghan JARAMILLO LAB BLOOD ORDERABLES F inal Result [facility] [address] [place] [address], * B-type natriuretic peptide (07/16/2024 9:43 AM EDT) [facility] BNP 22 <=100 pcg/mL LAB CHEMISTRY METHOD 07/16/2024 10:49 AM EDT [facility] Blood Venous blood specimen / Unknown Venipuncture / Unknown 07/16/2024 9:43 AM EDT 07/16/2024 10:10 AM EDT Antonio Wynne MD LAB BLOOD ORDERABLES Debi l Result [facility] [address] [place] [address], * Magnesium (07/16/2024 9:43 AM EDT) Pathologist [facility] Magnesium 2.1 1.9 - 2.6 mg/dL LAB CHEMISTRY METHOD 07/16/2024 10:37 AM EDT [facility] Blood Venous blood specimen / Unknown Venipuncture / Unknown 07/16/2024 9:43 AM EDT 07/16/2024 10:10 AM EDT Antonio Wynne MD LAB BLOOD ORDERABLES Debi l Result Performing Organization Address [facility]/ZIP Co de Phone Number [facility] [address] [place] [address], [place] [phone] * Lipase (07/16/2024 9:43 AM EDT) [facility] Lipase 25 13 - 75 unit/L LAB CHEMISTRY METHOD 07/16/2024 10:37 AM EDT [facility] Blood Venous blood specimen / Unknown Venipuncture / Unknown 07/16/2024 9:43 AM EDT 07/16/2024 10:10 AM EDT Antonio Wynne MD LAB BLOOD ORDERABLES Debi l Result Performing Organization Address [facility] Co de Phone Number [facility] [address] [place] [address], [place] [phone] * Creatine kinase (07/16/2024 9:43 AM EDT) [facility] Total CK 26 22 - 269 unit/L LAB CHEMISTRY METHOD 07/16/2024 5:43 PM EDT [facility] Blood Venous blood specimen / Unknown Venipuncture / Unknown 07/16/2024 9:43 AM EDT 07/16/2024 10:10 AM EDT Nadia JARAMILLO LAB BLOOD ORDERABLES Final Resu lt Performing Organization Address [facility]/ZIP Co de Phone Number [facility] [address] [place] [address], [place] [phone] * Cortisol (07/16/2024 9:43 AM EDT) [facility] Signature Cortisol 26.4 mcg/dL LAB CHEMISTRY METHOD 07/16/2024 5:58 PM T [facility] Blood Venous blood specimen / Unknown Venipuncture / Unknown 07/16/2024 9:43 AM EDT 07/16/2024 10:10 AM EDT Narrative [facility] - 07/16/2024 5:58 PM EDT CORTISOL REFERENCE RANGE ?? 8 AM SPEC: ??5.0-23.0 mcg/dL ?? 4 PM SPEC: ??3.0-16.0 mcg/dL ?? 8 PM SPEC: ??<5.0 mcg/dL us Nadia JARAMILLO LAB BLOOD ORDERABLES Final Resu lt [facility] [address] [place] [address], * (ABNORMAL) Comprehensive metabolic panel (07/16/2024 9:43 AM EDT) Sodium 134 133 - 145 mmol/L LAB CHEMISTRY METHOD 07/16/2024 10:[address] [facility] Potassium 4.1 3.5 - 5.5 mmol/L LAB CHEMISTRY METHOD 07/16/2024 10:[address] [facility] Chloride 105 96 - 110 mmol/L LAB CHEMISTRY METHOD 07/16/2024 10:[address] [facility] CO2 18(L) 21 - 32 mmol/L LAB CHEMISTRY METHOD 07/16/2024 10:[address] [facility] Anion Gap 11 3 - 11 LAB CHEMISTRY METHOD 07/16/2024 10:[address] [facility] Glucose 99 70 - 100 mg/dL LAB CHEMISTRY METHOD 07/16/2024 10:[address] [facility] BUN 17 5 - 25 mg/dL LAB CHEMISTRY METHOD 07/16/2024 10:[address] [facility] Creatinine 1.25(H) 0.50 - 1.10 mg/dL LAB CHEMISTRY METHOD 07/16/2024 10:[address] [facility] eGFR 43(L) >=60 mL/min/1. 73m2 LAB CHEMISTRY METHOD 07/16/2024 10:[address] [facility] Comment:Calculation based on the??Chronic Kidney Disease Epidemiology Collaboration (CKD-EPI) equation refit??without adjustment for race. BUN/Creatinine Ratio 13.6 LAB CHEMISTRY METHOD 07/16/2024 10:[address] [facility] Calcium 9.3 8.5 - 10.5 mg/dL LAB CHEMISTRY METHOD 07/16/2024 10:[address] [facility] AST (SGOT) 102(H) 10 - 42 unit/L LAB CHEMISTRY METHOD 07/16/2024 10:[address] [facility] ALT (SGPT) 52 10 - 60 unit/L LAB CHEMISTRY METHOD 07/16/2024 10:[address] [facility] Alkaline Phosphatase 176(H) 42 - 121 unit/L LAB CHEMISTRY METHOD 07/16/2024 10:[address] [facility] Total Protein 7.4 6.0 - 8.0 g/dL LAB CHEMISTRY METHOD 07/16/2024 10:[address] [facility] Albumin 2.4(L) 3.2 - 5.0 g/dL LAB CHEMISTRY METHOD 07/16/2024 10:[address] [facility] Total Bilirubin 0.9 0.0 - 1.4 mg/dL LAB CHEMISTRY METHOD 07/16/2024 10:[address] [facility] Blood Venous blood specimen / Unknown Venipuncture / Unknown 07/16/2024 9:43 AM EDT 07/16/2024 10:10 AM EDT us Antonio Wynne MD LAB BLOOD ORDERABLES Debi l Result [facility] [address] [place] [address], [place] [phone] * Hm Falls Risk Assessment (12/22/2023) Falls [...] Documents on File Type Date Recorded Patient Bacon Stringer Expl anation Advance Directives and Living Will 07/17/2024 1:06 PM Dulce Maria Keating Health Care Proxy Healthcare Agents on File Name Relationship Healthcare Agent [facility] p Communication Dulce Maria Montoya Daughter Health Care Agent Shon Keating Son [facility] [employer] e Agent Care Teams Handle Lathe Operator Relationship Specialty Start Date End Date Stephanie Rico MD [address] [place] [id number] [facility] - General 10/16/05
--- OUTSIDE RECORDS SUMMARY | 2024-08-02 17:35 | XMS_ITS | Encounter Summary ---
Author Organization [facility] Address [address] [place] [address] Care Team Providers Care Quick Mixer Operator Name Role Phone Stephanie Rico MD Primary Care Provider Della Armstrong MD Unavailable [phone] Encounter Details Date Type Department Care Team Description 01/22/2023 Client Operations Manager Report Medical Records [address] [place] [address] Rae Hooks Social History Tobacco Use Types Packs/Day Years [...] on filedocumented in this encounter Care Teams Quick Mixer Operator Relationship Specialty Start Date End Date Stephanie Rico MD [address] [place] [address] PCP - General 10/16/05 Della Armstrong MD [address] [facility] [address] [place] [address] Specialist Neurosurgery 04/15/21 documented as of this encounter
--- OUTSIDE RECORDS SUMMARY | 2024-08-02 17:35 | XMS_ITS | Encounter Summary ---
Author Organization [facility] Address [address] [place] [address] Care Team Providers Care Twill Cutter Name Role Phone Stephanie Rico MD Primary Care Provider Della Armstrong MD Unavailable [phone] Encounter Details Date Type Department Care Team Description 05/13/2012 Requirements Manager Report Medical Records [address] [place] [address] Sherif Bautista MD [address] [address] Social History Tobacco Use Types Packs/Day Years [...] on filedocumented in this encounter Care Teams Twill Cutter Relationship Specialty Start Date End Date Stephanie Rico MD [address] [place] [address] PCP - General 10/16/05 Della Armstrong MD [address] [address] Specialist Neurosurgery 04/15/21 documented as of this encounter
--- OUTSIDE RECORDS SUMMARY | 2024-08-02 17:35 | XMS_ITS | Encounter Summary ---
Author Organization [facility] Address [address] [place] [address] Care Team Providers Care Fire Battalion Chief Name Role Phone Stephanie Rico MD Primary Care Provider Della Armstrong MD Unavailable [phone] Encounter Details Date Type Department Care Team Description 09/27/2019 Release of Information Medical Records [address] [place] [address] Abstract, Provider Social History Tobacco Use Types [...] on filedocumented in this encounter Care Teams Fire Battalion Chief Relationship Specialty Start Date End Date Stephanie Rico MD [address] [place] [address] PCP - General 10/16/05 Della Armstrong MD 175 [facility] [address] [place] [address] Specialist Neurosurgery 04/15/21 documented as of this encounter
--- OUTSIDE RECORDS SUMMARY | 2024-08-02 17:35 | XMS_ITS | Encounter Summary ---
Author Organization [facility] Address [address] [place] [address] Care Team Providers Care Expeditionary Fighting Vehicle Crewman Name Role Phone Stephanie Rico MD Primary Care Provider Della Armstrong MD Unavailable [phone] Encounter Details Date Type Department Care Team Description 10/31/2013 Hospital Medical Records [address] [place] [address] Jordy Delarosa MD Social History Tobacco Use Types Packs/Day [...] on filedocumented in this encounter Care Teams Expeditionary Fighting Vehicle Crewman Relationship Specialty Start Date End Date Stephanie Rico MD [address] [place] [address] PCP - General 10/16/05 Della Armstrong MD 175 [facility] [address] [place] [address] Specialist Neurosurgery 04/15/21 documented as of this encounter
--- OUTSIDE RECORDS SUMMARY | 2024-08-02 17:35 | XMS_ITS | Encounter Summary ---
Author Organization [facility] Address [address] [place] [address] Care Team Providers Care Spray Worker Name Role Phone Stephanie Rico MD Primary Care Provider [phone] Della Armstrong MD Unavailable [phone] Encounter Details Date Type Department Care Team Description 04/08/2021 Business Doc Medical Records [address] [place] [address] Abstract, Provider Social History Tobacco Use Types [...] on filedocumented in this encounter Care Teams Spray Worker Relationship Specialty Start Date End Date Stephanie Rico MD [address] [place] [address] PCP - General 10/16/05 Della Armstrong MD [address] [facility] [address] [place] [address] Specialist Neurosurgery 04/15/21 documented as of this encounter
--- OUTSIDE RECORDS SUMMARY | 2024-08-02 17:35 | XMS_ITS | Encounter Summary ---
Author Organization [facility] Address [address] [place] [address] Care Team Providers Care Rn Testing Name Role Phone Stephanie Rico MD Primary Care Provider [phone] Della Armstrong MD Unavailable [phone] Encounter Details Date Type Department Care Team Description 02/18/2012 Director Enterprise Sales Report Medical Records [address] [place] [address] Mamadou Garcia Social History Tobacco Use Types [...] filedocumented in this encounter Care Teams Rn Testing Relationship Specialty Start Date End Date Stephanie Rico MD [address] [place] [address] PCP - General 10/16/05 Della Armstrong MD [address] [facility] [address] [place] [address] Specialist Neurosurgery 04/15/21 documented as of this encounter
--- OUTSIDE RECORDS SUMMARY | 2024-08-02 17:35 | XMS_ITS | Encounter Summary ---
Author Organization [facility] Address [address] [place] [address] Care Team Providers Care Flare Maker Name Role Phone Stephanie Rico MD Primary Care Provider [phone] Della Armstrong MD Unavailable [phone] Encounter Details Date Type Department Care Team Description 04/02/2021 Electronics Scale Tester Report Medical Records [address] [place] [address] Douglas Burk MD Social History Tobacco Use Types Packs/Day [...] on filedocumented in this encounter Care Teams Flare Maker Relationship Specialty Start Date End Date Stephanie Rico MD [address] [place], [place] [id number] PCP - General 10/16/05 Della Armstrong MD [address] [facility] [address] [place] [address] Specialist Neurosurgery 04/15/21 documented as of this encounter
[2024-08-03 09:38] LABS: Adenovirus PCR Not Detected (Not Detect.); Bordetella parapertussis PCR Not Detected (Not Detect.); Bordetella pertussis PCR Not Detected (Not Detect.); Chlamydia pneumoniae PCR Not Detected (Not Detect.); Coronavirus 229E PCR Not Detected (Not Detect.); Coronavirus HKU1 PCR Not Detected (Not Detect.); Coronavirus NL63 PCR Not Detected (Not Detect.); Coronavirus OC43 PCR Not Detected (Not Detect.); Human metapneumovirus PCR Not Detected (Not Detect.); Influenza A PCR Not Detected (Not Detect.); Influenza B PCR Not Detected (Not Detect.); Mycoplasma pneumoniae PCR Not Detected (Not Detect.); Parainfluenza 1 PCR Not Detected (Not Detect.); Parainfluenza 2 PCR Not Detected (Not Detect.); Parainfluenza 3 PCR Not Detected (Not Detect.); Parainfluenza 4 PCR Not Detected (Not Detect.); RSV PCR Detected (Not Detect.); Rhino/Enterovirus PCR Not Detected (Not Detect.); SARS-CoV-2 PCR Not Detected (Not Detect.)
[2024-08-03 10:22] LABS: Influenza A H1 PCR Not Detected (Not Detect.); Influenza A H1-2009 PCR Not Detected (Not Detect.); Influenza A H3 PCR Not Detected (Not Detect.)
== END 2024-08-02 15:48 | disposition home or self-care (01) ==
LOC: HO.MMNH2L 15:47
PROVIDERS: Visit Provider Nurse Practitioner
DX: I82.402 Acute embolism and thrombosis of unspecified deep veins of left lower extremity (principal); E78.5 Hyperlipidemia, unspecified; K21.9 Gastro-esophageal reflux disease without esophagitis
CPT/HCPCS: 87633

== ENCOUNTER 2024-08-07 05:45 | Outpatient (REF) | payer MEDICARE, SELFPAY ==
[2024-08-07 05:37] LABS: MANUAL DIFF FLAG NO
--- OUTSIDE RECORDS SUMMARY | 2024-08-07 06:00 | XMS_ITS | Clinical Summary ---
Author Organization [facility] Address [address] [place], [place] [id number] Care Team Providers Care Tag Press Operator Name Role Phone Stephanie Rico MD Primary Care Provider [phone] Allergies Active Allergy Reactions Criticality Noted Date Comments Gheens Hives Medium 03/28/2021 Elemental Sulfur Anaphylaxis High [...] age to complete this topic Care Teams Tag Press Operator Relationship Specialty Start Date End Date Stephanie Rico MD PCP - General Internal Medicine 03/27/21
--- OUTSIDE RECORDS SUMMARY | 2024-08-07 06:00 | XMS_ITS ---
Author Organization [facility] Address [address] [place] [address] Phone Care Team Providers Care Data Conversion Developer Name Role Phone Stephanie Rico MD Primary Care Provider [phone] Post Acute Care Coordination Status:Ongoing (Active) Start date:07/20/2024 Enrollment date:07/20/2024 Enrollment reason:Post acute care coordination Case Team Name Relationship Phone Rashida Mendoza RN Post Acute Catering Administrative Assistant(R nathan Staff) Continued Care and Services Coordination
--- OUTSIDE RECORDS SUMMARY | 2024-08-07 06:00 | XMS_ITS | Clinical Summary ---
Author Organization [facility] Address [address] [place] [address] Phone Care Team Providers Care Program Proposals Coordinator Name Role Phone Stephanie Rico MD Primary Care Provider [phone] Allergies Active Allergy Reactions Criticality Noted Date [...] 05/11/2023 Nephrotoxic acute renal failure 02/09/2023 Immunizations Immunization Administration Dates Next Due H1N1 Inj Preservative [...] 12/31/2021, 01/24/2021, Additional history exists Pneumococcal Vaccine: 50+ Years Completed 02/06/2015, 10/14/2007 Hepatitis B Vaccine Aged Out No longe r eligible based on patient's age to complete this topic Insurance Medicare [facility] Medicare [facility] Care Teams Program Proposals Coordinator Relationship Specialty Start Date End Date Stephanie Rico MD PCP - General Internal Medicine 02/09/23
--- OUTSIDE RECORDS SUMMARY | 2024-08-07 06:00 | XMS_ITS | Clinical Summary ---
Author Organization [facility] Address [address] [place] [address] Phone Care Team Providers Care Ict Security Specialist Name Role Phone Stephanie Rico MD Primary Care Provider [phone] Allergies Active Allergy Reactions Criticality Noted Date [...] (VTE) 07/16/2024 Diverticulosis 05/02/2024 PMR (polymyalgia rheumatica) ([facility] V24) 02/22 Monoclonal gammopathy 12/30/2023 Overview (05/02/2024): IgM spike Melanoma ([facility] V24, [facility] V28) 03/12/2022 Lumbar stenosis with neurogenic claudication Overview [...] kidney disease) stage 3, GFR 30-59 ml/min ([facility] V24, [facility] V28) 08/11/2013 Fibula fracture 01/22/2012 Overview (05/02/2024): Right leg, 01/05 Carpal tunnel syndrome of left wrist 10/11/2009 Radiculitis, cervical 10/11/2009 Wrist fracture 06/21/2009 Overview (05/02/2024): Left 03/04 Venous insufficiency 09/27/2006 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 9) with comorbidity ([facility] V24, [facility] V28) 04/20/2005 Encounters Date Type Department Care Team Description 07/16/2024 9:10 AM EDT - 07/20/2024 12:26 PM EDT Hospital Encounter [facility] [address] [place] [address] Antonio Wynne MD Santoyo-Pach eco, Omar D, MD Pain (Primary Dx); Pulmonary air embolism, initial encounter ([facility] V24, [facility] V28); Venous thromboembolism (VTE); Nausea Discharge Disposition: [facility] Facility from Last 3 Months Immunizations Name [...] TONSILLECTOMY COLONOSCOPY 12/30 PROCEDURE: HISTORICAL COLONOSCOPY; COMMENT: [email or web address]; negative screening examination OTHER SURGICAL HISTORY 02/2019 PROCEDURE: MAMMOGRAM CATARACT EXTRACTION 2013 Bilateral PROCEDURE: HISTORICAL CATARACT REMOVAL BREAST BIOPSY 1993 Left PROCEDURE: BX BREAST; PERC NEEDLE CORE W/IMAG GUID COLONOSCOPY 1991 PROCEDURE: HISTORICAL COLONOSCOPY; COMMENT: Negative screening examination COLONOSCOPY 05/07/2016 PROCEDURE: HISTORICAL COLONOSCOPY; COMMENT: R[facility]; diverticulosis, otherwise negative screening examination. BREAST SURGERY 1993 Left PROCEDURE: RI UNLISTED PROCEDURE BREAST BELPHAROPTOSIS REPAIR TOTAL KNEE [...] kidney disease) stage 3, GFR 30-59 ml/min ([facility] V24, [facility] V28) 08/11/2013 DX:CKD (chronic kidney disea se) stage 3, GFR 30-59 ml/min ([facility]) Tricuspid regurgitation 10/09/2013 DX:Tricu spid regurgitation; COMMENT: Mild to mod, echo 10/07 Nl EF History of sepsis DX:History of sepsis; COMMENT: Hospitalized [facility] August 2019 History of colitis DX:History of colitis; COMMENT: Hospitalized at [facility] August 2019 Diverticulosis DX:Diverticulosi s Primary osteoarthritis of both knees 07/30/2020 DX:Primary osteoarthritis of both knees Melanoma ([facility], [facility] V28) 03/12/2022 DX:Melanoma ([facility]) Melanoma ([facility], [facility] V28) 03/12/2022 DX:Melanoma ([facility]) Monoclonal gammopathy 12/30/2023 DX:Monoclo nal gammopathy Polymyositis ([facility] V24, [facility] V28) Family History Medical History Relation Name Comments [...] 2 VIEWS STAT 07/16/2024 10:37 AM EDT [id number], RSV, FLU A AND B QUALITATIVE RT-PCR, [...] ECG 12-LEAD STAT 07/16/2024 9:17 AM EDT HM FALLS RISK ASSESSMENT Routine 12/22/2023 LIPID PANEL Routine 09/14/2022 from Last 3 Months or Most Recently Relevant to Health Maintenance Results * ECG-Annotated (07/21/2024) Only the most recent of2 resultswithin the time period is included. us Provider Onbase MD ECG ORDERABLES Final Result * (ABNORMAL) CBC auto differential (07/19/2024 6:32 AM EDT) Only the most recent of4 resultswithin the time period is included. [facility] WBC 9.2 4.8 - 10.8 K/mcL LAB HEMETOLOGY METHOD 07/19/2024 7:13 AM [facility] RBC 3.00(L) 3.80 - 4.80 M/mcL LAB HEMETOLOGY METHOD 07/19/2024 7:13 AM [facility] Hemoglobin 8.9(L) 11.5 - 16.0 g/dL LAB HEMETOLOGY METHOD 07/19/2024 7:13 AM [facility] Hematocrit 29.1(L) 35.0 - 47.0 % LAB HEMETOLOGY METHOD 07/19/2024 7:13 AM [facility] MCV 96.7 79.0 - 98.0 FL LAB HEMETOLOGY METHOD 07/19/2024 7:13 AM [facility] MCH 29.6 27.0 - 32.0 pcg LAB HEMETOLOGY METHOD 07/19/2024 7:13 AM [facility] MCHC 30.6(L) 32.0 - 37.0 g/dL LAB HEMETOLOGY METHOD 07/19/2024 7:13 AM [facility] RDW 15.6(H) 11.0 - 15.0 % LAB HEMETOLOGY METHOD 07/19/2024 7:13 AM [facility] Platelets 584(H) 130 - 400 K/mcL LAB HEMETOLOGY METHOD 07/19/2024 7:13 AM [facility] MPV 9.3 7.0 - 11.0 FL LAB HEMETOLOGY METHOD 07/19/2024 7:13 [facility] NRBC 0.0 <1.0 % LAB HEMETOLOGY METHOD 07/19/2024 7:13 AM [facility] NRBC Absolute 0.00 <0.10 K/mcL LAB HEMETOLOGY METHOD 07/19/2024 7:13 AM [facility] Neutrophils Relative 60.7 % LAB HEMETOLOGY METHOD 07/19/2024 7:13 AM [facility] Lymphocytes Relative 27.2 % LAB HEMETOLOGY METHOD 07/19/2024 7:13 AM [facility] Monocytes Relative 8.6 % LAB HEMETOLOGY METHOD 07/19/2024 7:13 AM [facility] Eosinophils Relative 2.3 % LAB HEMETOLOGY METHOD 07/19/2024 7:13 AM [facility] Basophils Relative 0.4 % LAB HEMETOLOGY METHOD 07/19/2024 7:13 AM [facility] Immature Granulocytes Relative 0.8 % LAB HEMETOLOGY METHOD 07/19/2024 7:13 AM [facility] Neutrophils Absolute 5.57 1.50 - 7.00 K/mcL LAB HEMETOLOGY METHOD 07/19/2024 7:13 AM [facility] Lymphocytes Absolute 2.50 1.00 - 5.00 K/mcL LAB HEMETOLOGY METHOD 07/19/2024 7:13 AM [facility] Monocytes Absolute 0.79 0.20 - 1.00 K/mcL LAB HEMETOLOGY METHOD 07/19/2024 7:13 AM [facility] Eosinophils Absolute 0.21 0.00 - 0.50 K/mcL LAB HEMETOLOGY METHOD 07/19/2024 7:13 AM EDT [facility] Basophils Absolute 0.04 0.00 - 0.20 K/mcL LAB HEMETOLOGY METHOD 07/19/2024 7[facility] Immature Granulocytes Absolute 0.07(H) 0.00 - 0.03 K/mcL LAB HEMETOLOGY METHOD 07/19/2024 7:13 AM T [facility] Blood Venous blood specimen / Unknown Venipuncture / Unknown 07/19/2024 6:32 AM EDT 07/19/2024 6:41 AM EDT Leo Neumann MD LAB BLOOD ORDERABLES F inal Result [facility] [address] [place] [address], * (ABNORMAL) Basic metabolic panel (07/19/2024 6:32 AM EDT) Only the most recent of3 resultswithin the time period is included. Sodium 135 133 - 145 mmol/L LAB CHEMISTRY METHOD 07/19/2024 7:26 AM [facility] Potassium 3.9 3.5 - 5.5 mmol/L LAB CHEMISTRY METHOD 07/19/2024 7:26 AM [facility] Chloride 107 96 - 110 mmol/L LAB CHEMISTRY METHOD 07/19/2024 7:26 AM [facility] CO2 22 21 - 32 mmol/L LAB CHEMISTRY METHOD 07/19/2024 7:26 AM [facility] Anion Gap 6 3 - 11 LAB CHEMISTRY METHOD 07/19/2024 7:26 AM [facility] Glucose 127(H) 70 - 100 mg/dL LAB CHEMISTRY METHOD 07/19/2024 7:26 AM [facility] BUN 13 5 - 25 mg/dL LAB CHEMISTRY METHOD 07/19/2024 7:26 AM EDT [facility] Creatinine 1.10 0.50 - 1.10 mg/dL LAB CHEMISTRY METHOD 07/19/2024 7:26 AM EDT [facility] eGFR 50(L) >=60 mL/min/1. 73m2 LAB CHEMISTRY METHOD 07/19/2024 7:26 AM EDT [facility] Comment:Calculation based on the??Chronic Kidney Disease Epidemiology Collaboration (CKD-EPI) equation refit??without adjustment for race. BUN/Creatinine Ratio 11.8 LAB CHEMISTRY METHOD 07/19/2024 7:26 AM EDT [facility] Calcium 9.0 8.5 - 10.5 mg/dL LAB CHEMISTRY METHOD 07/19/2024 7:26 AM EDT [facility] Blood Venous blood specimen / Unknown Venipuncture / Unknown 07/19/2024 6:32 AM EDT 07/19/2024 6:41 AM EDT us Leo Neumann MD LAB BLOOD ORDERABLES F inal Result [facility] [address] [place] [address], [place] [phone] * TRANSTHORACIC ECHOCARDIOGRAM (TTE) COMPLETE W/ CONTRAST (07/17/2024 1:00 PM EDT) Left Atrium Minor [place] 5.0 cm CV PACS Left Atrium Major [place] 5.5 cm CV PACS LA Area Sys [...] Volume 74 mL CV PACS MV Deceleration [place] 5.0 m/s2 CV PACS E Wave Deceleration [...] in a supine position and lung artifact. Leo Neumann MD CV ECHO PROCEDURES Fin al Result * Anti-Xa - Every 6 Hours (07/17/2024 12:57 PM EDT) Only the most recent of5 resultswithin the time period is included. Heparin Anti-Xa 0.60 0.30 - 0.70 I Unit/mL LAB COAGULATION METHOD 07/17/2024 1:24 PM EDT [facility] Blood Venous blood specimen / Unknown Venipuncture / Unknown 07/17/2024 12:57 PM EDT 07/17/2024 1:01 PM EDT Narrative [facility] - 07/17/2024 1:24 PM EDT Therapeutic range listed is for Unfractionated Heparin. LMW Heparin therapeutic range: 0.50-1.20 IU/mL us Leo Neumann MD LAB BLOOD ORDERABLES F inal Result Performing Organization Address City/[facility]/ZIP Co de Phone Number [facility] [address] [place] [address], [place] [phone] * (ABNORMAL) Sedimentation rate (07/17/2024 8:10 AM EDT) Sed Rate 129(H) 0 - 30 mm/hr LAB HEMETOLOGY METHOD 07/17/2024 9:06 AM EDT [facility] Blood Venous blood specimen / Unknown Venipuncture / Unknown 07/17/2024 8:10 AM EDT 07/17/2024 8:25 AM EDT us Leo Neumann MD LAB BLOOD ORDERABLES F inal Result Performing Organization Address [facility]/ZIP Co de Phone Number [facility] [address] [place] [address], [place] [phone] * Vascular US duplex lower extremity venous [...] by: Danisha Nicolas MD on 07/16/2024 19:11:37 Nadia JARAMILLO CV VASCULAR PROCEDURES Edited R esult - Final * Activated Partial Thromboplastin Time - STAT (07/16/2024 12:07 PM EDT) aPTT 26.2 24.1 - 39.3 sec LAB COAGULATION METHOD 07/16/2024 12:52 PM EDT [facility] Blood Venous blood specimen / Unknown Venipuncture / Unknown 07/16/2024 12:07 PM EDT 07/16/2024 12:42 PM EDT Meghan JARAMILLO LAB BLOOD ORDERABLES F inal Result [facility] [address] [place] [address], [place] [phone] * Prothrombin Time with INR - STAT (07/16/2024 12:07 PM EDT) [facility] Protime 13.6 10.6 - 13.9 sec LAB COAGULATION METHOD 07/16/2024 12:52 PM EDT [facility] INR 1.1 LAB COAGULATION METHOD 07/16/2024 12:52 PM EDT [facility] Blood Venous blood specimen / Unknown Venipuncture / Unknown 07/16/2024 12:07 PM EDT 07/16/2024 12:42 PM EDT us Meghan JARAMILLO LAB BLOOD ORDERABLES F inal Result Performing Organization Address City/[facility]/ZIP Co de Phone Number [facility] [address] [place] [address], * Troponin I high sensitivity (07/16/2024 11:19 AM EDT) Only the most recent of2 resultswithin the time period is included. [facility] High Sensitivity Troponin I 4 <=54 ng/L LAB CHEMISTRY METHOD 07/16/2024 12:19 PM EDT [facility] Blood Venous blood specimen / Unknown Venipuncture / Unknown 07/16/2024 11:19 AM EDT 07/16/2024 11:46 AM EDT Narrative [facility] - 07/16/2024 12:19 PM EDT High levels of biotin in samples may falsely decrease hsTroponin values. ??Use caution when interpreting hsTroponin results in patients taking biotin who exhibit renal impairment (eGFR <60) or in patients taking more than 20 mg/day of biotin. us Antonio Wynne MD LAB BLOOD ORDERABLES Debi l Result Performing Organization Address City/[facility]/ZIP Co de Phone Number [facility] [address] [place] [address], [place] [phone] * CT Angio Chest wo and/or w [...] to the referring provider by secure message (FMS [place]) at the time of interpretation on 07/16/24. Telerad PA ([id number]) -------- FINAL REPORT -------- Dictated By: Jessica Ashford Dictated Date: 07/16/2024 11:24 ET Assigned Physician: Jessica Ashford Reviewed and Electronically Signed By: Jessica Ashford Signed Date: 07/16/2024 11:34 ET Workstation ID: [id number] Transcribed By: Self Edit Transcribed Date: 07/16/2024 [...] an independent CT workstation. DLP: 500.78 mGy/cm [employer] VCT Iterative reconstruction technique Findings: The pulmonary [...] an independent CT workstation. DLP: 500.78 mGy/cm [employer] VCT Iterative reconstruction technique Findings: The pulmonary [...] were conveyed to the referring provider by [employer]message (FMS [place]) at the time of interpretation on 07/16/24. Telerad ELLA ([id number]) -------- FINAL REPORT -------- Dictated By: Jessica Ashford Dictated Date: 07/16/2024 11:24 ET Assigned Physician: Jessica Ashford Reviewed and Electronically Signed By: Jessica Ashford Signed Date: 07/16/2024 11:34 ET Workstation ID: [id number] Transcribed By: Self Edit Transcribed Date: 07/16/2024 [...] GEMUSE QTc 463 ms GEMUSE P Wave [place] 49 degrees GEMUSE R [place] 12 degrees GEMUSE T [place] 39 degrees GEMUSE ECG Interpretation Sinus tachycardia [...] further characterization if clinically appropriate. Telerad ELLA ([id number]) -------- FINAL REPORT -------- Dictated By: Jessica Ashford Dictated Date: 07/16/2024 10:38 ET Assigned Physician: Jessica Ashford Reviewed and Electronically Signed By: Jessica Ashford Signed Date: 07/16/2024 10:40 ET Workstation ID: [id number] Transcribed By: Self Edit Transcribed Date: 07/16/2024 [...] for further characterization if clinicallyappropriate. Telerad ELLA ([id number]) -------- FINAL REPORT -------- Dictated By: Jessica Ashford Dictated Date: 07/16/2024 10:38 ET Assigned Physician: Jessica Ashford Reviewed and Electronically Signed By: Jessica Ashford Signed Date: 07/16/2024 10:40 ET Workstation ID: [id number] Transcribed By: Self Edit Transcribed Date: 07/16/2024 10:38 ET us Antonio Wynne MD IMG XR PROCEDURES Final R esult * [id number], RSV, Influenza A and B qualitative RT-PCR (07/16/2024 10:00 AM EDT) Influenza A PCR Not Detected Not Detected LAB MICROBIOLOGY METHOD 07/16/2024 11:16 AM EDT [facility] Influenza B PCR Not Detected Not Detected LAB MICROBIOLOGY METHOD 07/16/2024 11:16 AM EDT [facility] RSV PCR Not Detected Not Detected LAB MICROBIOLOGY METHOD 07/16/2024 11:16 AM EDT [facility] SARS COV-2 Not Detected Not Detected LAB MICROBIOLOGY METHOD 07/16/2024 11:16 AM EDT [facility] Swab Both anterior nares / Unknown Non-blood Collection / Unknown 07/16/2024 10:00 AM EDT 07/16/2024 10:09 AM EDT Narrative [facility] - 07/16/2024 11:16 AM EDT Disclaimer: ??Testing was performed using the [employer] GeneXpert Xpress SARS-CoV-2 _Flu_RSV PLUS PCR assay. [...] for Healthcare providers can be found at https://www.fda.gov/media/986079/download. ?? Fact sheet for Healthcare patients can be found at https://www.fda.gov/media/104202/download. Meghan JARAMILLO LAB MICROBIOLOGY - GEN ERAL ORDERABLES Final Result Performing Organization Address [facility]/ZIP Co de Phone Number [facility] [address] [place] [address], [place] [phone] * (ABNORMAL) Thyroid stimulating hormone with reflex to free t4 and free t3 (TSH Reflex) (07/16/2024 9:43 AM EDT) TSH 5.73(H) 0.40 - 4.00 mcIU/mL LAB CHEMISTRY METHOD 07/16/2024 11:43 AM EDT [facility] Blood Venous blood specimen / Unknown Venipuncture / Unknown 07/16/2024 9:43 AM EDT 07/16/2024 10:10 AM EDT Meghan JARAMILLO LAB BLOOD ORDERABLES F inal Result Performing Organization Address [facility]/ZIP Co de Phone Number [facility] [address] [place] [address], [place] [phone] * Free thyroxine with reflex to free triiodothyronine (07/16/2024 9:43 AM EDT) Free T4 1.06 0.70 - 1.80 ng/dL LAB CHEMISTRY METHOD 07/16/2024 12:53 PM EDT [facility] Blood Venous blood specimen / Unknown Venipuncture / Unknown 07/16/2024 9:43 AM EDT 07/16/2024 10:10 AM EDT Meghan JARAMILLO LAB BLOOD ORDERABLES F inal Result Performing Organization Address [facility]/ZIP Co de Phone Number [facility] [address] [place] [address], [place] [phone] * (ABNORMAL) Triiodothyronine free (07/16/2024 9:43 AM EDT) T3, Free 192(L) 230 - 420 pcg/dL LAB CHEMISTRY METHOD 07/16/2024 2:10 PM EDT [facility] Blood Venous blood specimen / Unknown Venipuncture / Unknown 07/16/2024 9:43 AM EDT 07/16/2024 10:10 AM EDT Meghan JARAMILLO LAB BLOOD ORDERABLES F inal Result Performing Organization Address [facility] de Phone Number [facility] [address] [place] [address], [place] [phone] * B-type natriuretic peptide (07/16/2024 9:43 AM EDT) BNP 22 <=100 pcg/mL LAB CHEMISTRY METHOD 07/16/2024 10:49 AM EDT [facility] Blood Venous blood specimen / Unknown Venipuncture / Unknown 07/16/2024 9:43 AM EDT 07/16/2024 10:10 AM EDT Antonio Wynne MD LAB BLOOD ORDERABLES Debi l Result Performing Organization Address [facility] Co de Phone Number [facility] [address] [place] [address], [place] [phone] * Magnesium (07/16/2024 9:43 AM EDT) Pathologist [facility] Magnesium 2.1 1.9 - 2.6 mg/dL LAB CHEMISTRY METHOD 07/16/2024 10:37 AM EDT [facility] Blood Venous blood specimen / Unknown Venipuncture / Unknown 07/16/2024 9:43 AM EDT 07/16/2024 10:10 AM EDT Antonio Wynne MD LAB BLOOD ORDERABLES Debi l Result [facility] [address] [place] [address], [place] [phone] * Lipase (07/16/2024 9:43 AM EDT) [facility] Lipase 25 13 - 75 unit/L LAB CHEMISTRY METHOD 07/16/2024 10:37 AM EDT [facility] Blood Venous blood specimen / Unknown Venipuncture / Unknown 07/16/2024 9:43 AM EDT 07/16/2024 10:10 AM EDT Antonio Wynne MD LAB BLOOD ORDERABLES Debi l Result [facility] [address] [place] [address], [place] [phone] * Creatine kinase (07/16/2024 9:43 AM EDT) Total CK 26 22 - 269 unit/L LAB CHEMISTRY METHOD 07/16/2024 5:43 PM EDT [facility] Blood Venous blood specimen / Unknown Venipuncture / Unknown 07/16/2024 9:43 AM EDT 07/16/2024 10:10 AM EDT Nadia JARAMILLO LAB BLOOD ORDERABLES Final Resu lt Performing Organization Address City/[facility]/ZIP Co de Phone Number [facility] [address] [place] [address], [place] [phone] * Cortisol (07/16/2024 9:43 AM EDT) Cortisol 26.4 mcg/dL LAB CHEMISTRY METHOD 07/16/2024 5:58 PM EDT [facility] Blood Venous blood specimen / Unknown Venipuncture / Unknown 07/16/2024 9:43 AM EDT 07/16/2024 10:10 AM EDT Narrative [facility] - 07/16/2024 5:58 PM EDT CORTISOL REFERENCE RANGE ?? 8 AM SPEC: ??5.0-23.0 mcg/dL ?? 4 PM SPEC: ??3.0-16.0 mcg/dL ?? 8 PM SPEC: ??<5.0 mcg/dL Nadia JARAMILLO LAB BLOOD ORDERABLES Final Resu lt Performing Organization Address City/[facility]/ZIP Co de Phone Number [facility] [address] [place] [address], [place] [phone] * (ABNORMAL) Comprehensive metabolic panel (07/16/2024 9:43 AM EDT) Sodium 134 133 - 145 mmol/L LAB CHEMISTRY METHOD 07/16/2024 10:37 AM EDT [facility] Potassium 4.1 3.5 - 5.5 mmol/L LAB CHEMISTRY METHOD 07/16/2024 10:37 AM EDT [facility] Chloride 105 96 - 110 mmol/L LAB CHEMISTRY METHOD 07/16/2024 10:37 AM EDT [facility] CO2 18(L) 21 - 32 mmol/L LAB CHEMISTRY METHOD 07/16/2024 10:37 AM EDT [facility] Anion Gap 11 3 - 11 LAB CHEMISTRY METHOD 07/16/2024 10:37 AM [facility] Glucose 99 70 - 100 mg/dL LAB CHEMISTRY METHOD 07/16/2024 10:37 AM [facility] BUN 17 5 - 25 mg/dL LAB CHEMISTRY METHOD 07/16/2024 10:37 AM [facility] Creatinine 1.25(H) 0.50 - 1.10 mg/dL LAB CHEMISTRY METHOD 07/16/2024 10:37 AM [facility] eGFR 43(L) >=60 mL/min/1. 73m2 LAB CHEMISTRY METHOD 07/16/2024 10:37 AM [facility] Comment:Calculation based on the??Chronic Kidney Disease Epidemiology Collaboration (CKD-EPI) equation refit??without adjustment for race. BUN/Creatinine Ratio 13.6 LAB CHEMISTRY METHOD 07/16/2024 10:37 AM [facility] Calcium 9.3 8.5 - 10.5 mg/dL LAB CHEMISTRY METHOD 07/16/2024 10:37 AM [facility] AST (SGOT) 102(H) 10 - 42 unit/L LAB CHEMISTRY METHOD 07/16/2024 10:37 AM [facility] ALT (SGPT) 52 10 - 60 unit/L LAB CHEMISTRY METHOD 07/16/2024 10:37 AM [facility] Alkaline Phosphatase 176(H) 42 - 121 unit/L LAB CHEMISTRY METHOD 07/16/2024 10:37 AM [facility] Total Protein 7.4 6.0 - 8.0 g/dL LAB CHEMISTRY METHOD 07/16/2024 10:37 AM [facility] Albumin 2.4(L) 3.2 - 5.0 g/dL LAB CHEMISTRY METHOD 07/16/2024 10:37 AM [facility] Total Bilirubin 0.9 0.0 - 1.4 mg/dL LAB CHEMISTRY METHOD 07/16/2024 10:37 AM EDT [facility] Blood Venous blood specimen / Unknown Venipuncture / Unknown 07/16/2024 9:43 AM EDT 07/16/2024 10:10 AM EDT Antonio Wynne MD LAB BLOOD ORDERABLES Debi l Result [facility] [address] [place] [address], [place] [phone] * Falls Risk Assessment (12/22/2023) Falls Risk Assessment abstracted Historical Provider HEALTH MAINTENANCE Final Result * [...] Documents on File Type Date Recorded Patient Supply Chain Program Manager Expl anation Advance Directives and Living Will 07/17/2024 1:06 PM Dulce Maria Keating Health Care Proxy Healthcare Agents on File Name Relationship Healthcare Agent Relationshi p Communication Dulce Maria Montoya Daughter Health Care Agent Shon Keating Son [employer] Car e Agent Care Teams Ict Security Specialist Relationship Specialty Start Date End Date Stephanie Rico MD [address] [place] [address] PCP - General 10/16/05
[2024-08-07 06:17] LABS: Basophils Percent Auto 0.1 % (0-2); Eosinophils Absolute Auto 0.1 X10*3/uL (0.0-0.4); Eosinophils Percent Auto 1.7 % (0-4); Hematocrit 33.2 % (37.0-47.0); Hemoglobin 10.3 g/dl (12.0-16.0); Imm Gran Abs Auto 0.03 X10*3/uL (0.00-0.03); Imm Gran Pct Auto 0.4 % (0.0-0.4); Lymphocytes Absolute Auto 1.9 X10*3/uL (1.2-4.9); Lymphocytes Percent Auto 24.9 % (20-40); Mean Corpuscular Hemoglobin 30.8 pg (27.0-33.0); Mean Corpuscular Volume 99.4 fL (80.0-98.0); Mean Platelet Volume 10.2 fL (9.4-12.3); Monocytes Absolute Auto 0.4 X10*3/uL (0.1-1.2); Monocytes Percent Auto 5.6 % (2-11); Neutrophils Absolute Auto 5.1 x10*3/uL (2.0-8.3); Neutrophils Percent Auto 67.3 % (45-73); Platelet Count 204 X10*3/uL (160-400); Red Blood Count 3.34 X10*6/uL (4.20-5.50); Red Cell Distribution Width 19.4 % (11.0-16.0); White Blood Count 7.6 X10*3/uL (4.8-10.8)
[2024-08-07 06:42] LABS: Anion Gap 13 (12-20); Blood Urea Nitrogen 21 mg/dL (9-16); Carbon Dioxide 20 mmol/L (22-29); Chloride 113 mmol/L (96-108); Estimated Glomerular Filt Rate 53; Glucose Random 124 mg/dL (60-115); Potassium 3.8 mmol/L (3.3-5.1); Sodium 142 mmol/L (135-145)
== END 2024-08-07 05:46 | disposition home or self-care (01) ==
LOC: HO.MMNH2L 05:45
PROVIDERS: Visit Provider Family Medicine
DX: I26.99 Other pulmonary embolism without acute cor pulmonale (principal); I82.402 Acute embolism and thrombosis of unspecified deep veins of left lower extremity
CPT/HCPCS: 36415; 80048; 85025